=== PATIENT | male | born 1960 | race Caucasian/White ===

== ENCOUNTER 2023-11-02 09:37 | Inpatient (IN) | payer OTHER, SELFPAY ==
[2023-11-02] VITALS (8 sets, daily range): BP systolic 101–150; BP diastolic 53–80; PULSE 72–90; RESP 16–21; TEMP 36.5–36.8; O2SAT 92–98; BMI 27.4
--- NOTE | ~2023-11-02 | XR_ITS ---
EXAMINATION: XR CHEST CLINICAL INFORMATION: Cough and fever COMPARISON: None available. TECHNIQUE: Frontal view of the chest was obtained. FINDINGS: There is left basilar atelectasis present. No other significant abnormality is noted involving the heart, lungs, mediastinum, bony thorax or soft tissues. XR/XR chest 1V IMPRESSION: Left basilar atelectasis.
--- NOTE | 2023-11-02 07:00 | CA_ITS ---
Transthoracic Echocardiogram Patient (Last, First, Middle): Nilo Chu M Gender: Male Date of : 1960 Age: 63 Procedure Date: 11/02/2023 Procedure Type: Transthoracic Echocardiogram Location: ER Height: 180.34 cm Weight: 88.91 kg BSA: 2.09 m2 Heart Rate: bpm BP: 115 / 60 mmHg [employer] Consultant: Referring MD: Alycia Haskins DO Symptoms: elevated troponin Study Quality: Adequate ECG Rhythm: Sinus Conclusions: - The left ventricular systolic function is mildly decreased. The calculated ejection fraction is 52% by biplane method. - No obvious valvular pathology seen on this study. Findings Procedure Information Contrast agent, definity, is being given per protocol without apparent complications. Left Ventricle Normal left ventricular cavity size. There is normal left ventricular wall thickness. The left ventricular systolic function is mildly decreased. The calculated ejection fraction is 52% by biplane method. There is mild global hypokinesis. Diastolic function is normal for age. Possible basal inferior hypokinesis in some views. Right Ventricle Mildly increased right ventricular cavity size. There is normal right ventricular systolic function. Atria The left atrium is mildly dilated. The right atrium is normal in size. Aortic Valve There is a normal trileaflet aortic valve. There is no aortic valve stenosis. There is no aortic valve regurgitation. Mitral Valve The mitral valve appears normal. There is no mitral valve regurgitation. There is no mitral valve stenosis. Pulmonic Valve The pulmonic valve is likely normal. Tricuspid Valve There is trace tricuspid valve regurgitation. There is no evidence of pulmonary hypertension. Great Vessels The asc aorta is normal in size. Venous The inferior vena cava is normal in size and collapses greater than 50% with inspiration. Pericardium/Pleural There is a trivial pericardial effusion. Prior Study Comparison No prior study available for comparison. Recommendations, Care & Conclusions No obvious valvular pathology seen on this study. Measurements 2D Linear Measurements IVSd: 1.00 0.6-0.9/0.6-1.0 cm LVIDd: 5.40 3.9-5.3/4.2-5.9 cm LVIDd Index: 2.58 2.4-3.2/2.2-3.1 cm/m2 LVIDs: 3.83 2.0-3.6 cm LVPWd: 1.04 0.7-1.1 cm Ao Root: 3.30 2.1-3.5 cm LA Diam: 4.40 2.7-3.8/3.0-4.0 cm LAIDs Index: 2.11 1.5-2.3 cm/m2 LV Mass: 264.20 67-162/88-224 g LV Mass Index: 126.41 43-95/49-115 g/m2 LVOT Diam: 2.10 3.0+(-)1.3 cm 2D Systolic Function EF 4C: 53.90 >55% EF 2C: 52.00 >55% EF BiP: 52.40 >55% Mitral Valve MV Pk E: 0.99 MV PK A: 0.65 MV Decel Time: 118.00 E/A: 1.50 E'Lateral: 10.40 E'Medial: 7.07 E/E' Med: 14.00 E/E' Lat: 9.50 PHT: 34.00 MVA PHT: 6.47 Decel [place]: 8.43 Aortic Valve AoV Pk Bernabe: 1.29 AoV Mn Bernabe: 0.92 AoV VTI: 0.27 AoV Pk Grad: 7.00 Aov Mn Grad: 4.00 [place] Cont.VTI: 2.55 LVOT LVOT Pk Bernabe: 0.94 LVOT Mn Bernabe: 0.65 LVOT VTI: 0.20 LVOT Pk Grad: 4.00 LVOT Mn Grad: 2.00 LVOT Diam: 2.10 LVOT Area: 3.46 Diastolic Function MV Pk E: 0.99 MV Pk A: 0.65 E/A: 1.50 E'Medial: 7.07 E/E' Med: 14.00 E' Laterial: 10.40 E/E' Lat: 9.50 Right Ventricle TAPSE (mm): 25.00 TVS' Bernabe: 13.00 Tricuspid Valve TR Pk Bernabe: 2.12 TR Pk Grad: 18.00 RA Press: 3.00 RVSP: 21.00 Great Vessels Aorta Ao Root-2D: 3.30 2.0-3.7 cm Ao Asc: 3.50 2.1-3.4 cm Pulmonary Valve PV Pk Bernabe: 1.03 Peak PV Grad: 4.00 Updated in Other Vendor System with Status of Final Jonathan Emerson MD electronically signed on 11/02/2023 4:47:36 PM with status of Final
--- NOTE | 2023-11-02 09:53 | ECG_ITS ---
Test Reason : WEAKNESS Blood Pressure : / mmHG Vent. Rate : 077 BPM Atrial Rate : 077 BPM P-R Int : 146 ms QRS Dur : 088 ms QT Int : 404 ms P-R-T Axes : 035 031 028 degrees QTc Int : 457 ms Normal sinus rhythm Nonspecific ST abnormality Abnormal ECG No previous ECGs available Referred By: Alycia Haskins Electronically Signed By:IVETT GUTIERREZ
--- NOTE | 2023-11-02 10:06 | ED.GENADULT ---
HPI - General Adult General Chief complaint: General Medical Stated complaint: WEAKNESS S/P YARD WORK T-1 PER EMS Time Seen by Provider: 11/02/23 09:43 Source: patient, EMS and old records reviewed Mode of arrival: EMS Limitations: no limitations History of Present Illness ED Provider: BETO TONEY narrative: 63 yo male with PMH of depression and HLD here with c/o 1 week body aches, subjective fevers mild cough - no travel, sick contacts, no known tick bites. He is outside a lot. He has been taking Motrin for relief. This has never happened before. No dysuria. No neck pain. MD complaint: body aches Onset (ago): week(s) (1) Radiation: non-radiation Severity: moderate Quality: aching Pain Consistency: constant Relieving factors: none Exacerbating factors: movement Associated symptoms: fever/chills, loss of appetite and malaise Treatments prior to arrival: NSAID Related Data Home Medications ?Medication ?Instructions ?Recorded ?Confirmed ascorbic acid (vitamin C) 500 mg 500 mg PO DAILY 11/02/23 11/02/23 tablet atorvastatin 20 mg tablet 20 mg PO BEDTIME 11/02/23 11/02/23 multivitamin 1 tab PO DAILY 11/02/23 11/02/23 omega 8-zjs-tzq-fish oil 1,000 mg 1 cap PO DAILY 11/02/23 11/02/23 (120 mg-180 mg) capsule (Fish Oil) sertraline 100 mg tablet 100 mg PO DAILY 11/02/23 11/02/23 vitamin B complex 1 cap PO DAILY 11/02/23 11/02/23 Allergies Allergy/AdvReac Type Severity Reaction Status Date / Time Penicillins [PCN] Allergy Unknown Verified 11/02/23 09:50 Review of Systems Review of Systems: Constitutional : pos Fever, pos Chills, pos Fatigue ENT/Mouth : No sore throat, No Rhinorrhea Eyes: No Eye Pain, No Swelling, No Redness Cardiovascular : No Chest Pain, No SOB, No Dyspnea on Exertion Respiratory : No Cough, No Sputum Gastrointestinal : No Nausea, No Vomiting, No Diarrhea, No abdominal Pain Genitourinary : No Dysuria, No Urinary Frequency, No Hematuria, Musculoskeletal : No joint pain, pos Myalgias, No Joint Swelling Skin : No Skin Lesions, No rash Neuro : No Weakness, No Numbness, No Dizziness, no Headache Psych : No Anxiety/Panic, No Depression All other systems reviewed and are negative [facility] Past Medical History Attestation statement: The following information was validated with the patient. Source: old records reviewed Medical History Hyperlipidemia Depression Social History Social History Patient Tobacco Use Status: Never used Tobacco Advance Directives: No Advance Directives Information Provided: Yes Do you have a plan to hurt others: No Plan Physical Exam ED Vital Signs: Vital Signs - 24 hr 11/02/23 09:45 11/02/23 10:42 11/02/23 12:00 Temperature 98 F 97.8 F Pulse Rate 83 74 78 Respiratory Rate 18 18 18 Blood Pressure 131/76 120/69 115/60 Pulse Oximetry 98 97 96 Oxygen Delivery Method Room Air Room Air BMI result Body Mass Index 27.4 Appearance: Alert. Oriented X3. No acute distress. Eyes: Pupils equal, round and reactive to light. ENT: Pharynx normal. Neck: Normal inspection. Neck supple. CVS: Normal heart rate and rhythm. Pulses normal. Respiratory: No respiratory distress. Breath sounds normal. Abdomen: Soft and nontender. Skin: Skin warm and dry. Normal skin color. Normal skin turgor. Extremities: No lower extremity edema. No calf ttp Neuro: Oriented X 3. No motor deficit. No sensory deficit. Course Course Course Narrative: doxy started pending tick panel trop seems more like myocarditis vs ACS Medications Administered Discontinued Medications Generic Name Dose Route Start Last Admin Trade Name Freq PRN Reason Stop Dose Admin Sodium Chloride 1,000 mls @ 999 mls/hr 11/02/23 09:53 11/02/23 12:10 Ns IV 11/02/23 10:53 Infused .Q1H1M ONE Infusion Doxycycline Hyclate 100 mg/ 250 mls @ 166.67 mls/hr 11/02/23 11:57 11/02/23 14:40 Sodium Chloride IV 11/02/23 13:26 Infused ONCE ONE Infusion Medical Decision Making Medical Decision Making [facility] Narrative: 63 yo male with PMH of HLD, depression here with one week of generalized malaise, subj fevers/chills and body aches at this time no localized symptoms will obtain labs, UA, CXR, lyme and tick panel. Possible viral syndrome vs tick borne illness Differential Diagnosis Differential Diagnoses: The differential diagnosis associated with the presentation includes viral syndrome vs tick borne illness Admission/Observation Consideration of admission/observation: Escalation of care including admission/observation considered will admit for further workup Consult Healthcare Provider Management of the patient was discussed with: Hospitalist (will admit) and [facility]ology notified 1151am - admit ECHO and ESR, CRP Lab Data MDM Lab Attestation statement: I reviewed the patient's lab results. 11/02/23 10:36 11/02/23 11:19 Labs: Lab Results 11/02/23 11/02/23 11/02/23 Range/Units 10:36 10:37 11:19 WBC 11.8 H (4.8-10.8) X10*3/uL RBC 3.64 L (4.60-5.80) X10*6/uL Hgb 11.3 L (14.0-18.0) g/dl Hct 33.0 L (42.0-52.0) % MCV 90.7 (80.0-98.0) fL MCH 31.0 (27.0-33.0) pg MCHC 34.2 (31.0-36.0) g/dl RDW 12.9 (11.0-16.0) % Plt Count 290 (160-400) X10*3/uL MPV 11.7 (9.4-12.4) fL Immature Gran % (Auto) 1.1 H (0.0-0.4) % Neut % (Auto) 88.0 H (45-73) % Lymph % (Auto) 4.4 L (20-40) % [place] % (Auto) 6.2 (2-11) % Eos % (Auto) 0.1 (0-4) % Baso % (Auto) 0.2 (0-2) % Lymph # (Auto) 0.5 L (1.2-4.9) X10*3/uL [place] # (Auto) 0.7 (0.1-1.2) X10*3/uL Eos # (Auto) 0.0 (0.0-0.4) X10*3/uL Baso # (Auto) 0.0 (0.0-0.2) X10*3/uL Abs Immat Gran (auto) 0.13 H (0.00-0.03) X10*3/uL Absolute Neuts (auto) 10.4 H (2.0-8.3) x10*3/uL Absolute Nucleated RBC 0.000 (0.0-0.012) X10*3/uL Nucleated RBC % (auto) 0.0 (0.0-0.2) /100WBC ESR (0-15) MM/HR Sodium 138 (135-145) mmol/L Potassium 4.0 (3.3-5.1) mmol/L Chloride 105 (96-108) mmol/L Carbon Dioxide 25 (22-29) mmol/L Anion Gap 12 (12-20) BUN 23 H (9-16) mg/dL Creatinine 0.83 (0.5-1.4) mg/dL Estim Creat Clear Calc 98.2 Estimated GFR > 60 Random Glucose 113 (60-115) mg/dL Lactic Acid 1.6 (0.5-2.0) mmol/L Calcium 8.9 (8.4-10.2) mg/dL Magnesium 2.4 (1.6-2.6) mg/dL Total Bilirubin 1.3 H (0.0-1.0) mg/dL Direct Bilirubin 0.6 H (0.0-0.5) mg/dL AST 120 H (5-37) U/L ALT 130 H (0-40) U/L Alkaline Phosphatase 182 H (39-117) U/L Total Creatine Kinase 316 H (38-174) U/L Troponin I High Sens 6947.0 H* (<3.5-35.0) ng/L C-Reactive Protein 36.12 H (< or = 0.50) mg/dL B-Natriuretic Peptide (<100) pg/mL Total Protein 6.3 L (6.5-8.0) g/dL Albumin 3.1 L (3.5-5.0) g/dL Lipase 17 (8-78) U/L Hold Red Top Urine Color Urine Appearance Urine pH (5.0-9.0) Ur Specific [place] (1.005-1.025) Urine Protein (Neg-Trace) mg/dL Urine Glucose (UA) (Negative) mg/dL Urine Ketones (Negative) mg/dL Urine Blood (Negative) Urine Nitrite (Negative) Ur Leukocyte Esterase (Negative) Urine RBC (0-2) /HPF Urine WBC (0-5) /HPF Ur Squamous Epith Cells (0-2) /HPF Urine Bacteria (None Seen) Hyaline Casts (0-2) /LPF Granular Casts Influenza Type A (PCR) NEGATIVE (Negative) Influenza Type B (PCR) NEGATIVE (Negative) RSV RNA Qual (PCR) NEGATIVE (Negative) SARS-CoV-2 RNA (RT-PCR) NEGATIVE (Negative) 11/02/23 11/02/23 Range/Units 11:50 12:25 WBC (4.8-10.8) X10*3/uL RBC (4.60-5.80) X10*6/uL Hgb (14.0-18.0) g/dl Hct (42.0-52.0) % MCV (80.0-98.0) fL MCH (27.0-33.0) pg MCHC (31.0-36.0) g/dl RDW (11.0-16.0) % Plt Count (160-400) X10*3/uL MPV (9.4-12.4) fL Immature Gran % (Auto) (0.0-0.4) % Neut % (Auto) (45-73) % Lymph % (Auto) (20-40) % [place] % (Auto) (2-11) % Eos % (Auto) (0-4) % Baso % (Auto) (0-2) % Lymph # (Auto) (1.2-4.9) X10*3/uL [place] # (Auto) (0.1-1.2) X10*3/uL Eos # (Auto) (0.0-0.4) X10*3/uL Baso # (Auto) (0.0-0.2) X10*3/uL Abs Immat Gran (auto) (0.00-0.03) X10*3/uL Absolute Neuts (auto) (2.0-8.3) x10*3/uL Absolute Nucleated RBC (0.0-0.012) X10*3/uL Nucleated RBC % (auto) (0.0-0.2) /100WBC ESR 90 H (0-15) MM/HR Sodium (135-145) mmol/L Potassium (3.3-5.1) mmol/L Chloride (96-108) mmol/L Carbon Dioxide (22-29) mmol/L Anion Gap (12-20) BUN (9-16) mg/dL Creatinine (0.5-1.4) mg/dL Estim Creat Clear Calc Estimated GFR Random Glucose (60-115) mg/dL Lactic Acid (0.5-2.0) mmol/L Calcium (8.4-10.2) mg/dL Magnesium (1.6-2.6) mg/dL Total Bilirubin (0.0-1.0) mg/dL Direct Bilirubin (0.0-0.5) mg/dL AST (5-37) U/L ALT (0-40) U/L Alkaline Phosphatase (39-117) U/L Total Creatine Kinase (38-174) U/L Troponin I High Sens (<3.5-35.0) ng/L C-Reactive Protein (< or = 0.50) mg/dL B-Natriuretic Peptide 149 H (<100) pg/mL Total Protein (6.5-8.0) g/dL Albumin (3.5-5.0) g/dL Lipase (8-78) U/L Hold Red Top See Note Urine Color Dark Yellow Urine Appearance Cloudy Urine pH 5.5 (5.0-9.0) Ur Specific [place] >= 1.030 H (1.005-1.025) Urine Protein 100 (2+) H (Neg-Trace) mg/dL Urine Glucose (UA) Negative (Negative) mg/dL Urine Ketones Trace (Negative) mg/dL Urine Blood Negative (Negative) Urine Nitrite Negative (Negative) Ur Leukocyte Esterase Trace H (Negative) Urine RBC 0-2 (0-2) /HPF Urine WBC 0-5 (0-5) /HPF Ur Squamous Epith Cells 3-5 (0-2) /HPF Urine Bacteria 1+ (None Seen) Hyaline Casts 11-20 (0-2) /LPF Granular Casts Present Influenza Type A (PCR) (Negative) Influenza Type B (PCR) (Negative) RSV RNA Qual (PCR) (Negative) SARS-CoV-2 RNA (RT-PCR) (Negative) Independent Interpretation I performed an independent interpretation of an: EKG and Plain X-Ray (no CHF or pneumonia) Interpretation: Rate: 77 Rhythm: NSR [place]: normal Normal P waves. Normal [place]. Normal QRS complex. ST T wave : normal no RACHANA qTC: 457 prior studies: no acute ischemia The study has been interpreted contemporaneously by me. . Radiology Impression Discussion of test interpretation with radiology: I have reviewed the radiologist's reading. Independent Historian Clinical information obtained from an independent historian. History obtained from or confirmed by: EMS External Record Review External record reviewed: Outpatient record Discharge Plan Discharge Clinical Impression: Myalgia, Elevated troponin, Malaise Patient Disposition: Admitted As Inpatient
[2023-11-02] MEDS: 0.9 % Sodium Chloride 1,000 ML 999 ML IV (10:42)
[2023-11-02 10:46] LABS: MANUAL DIFF FLAG NO
[2023-11-02 10:49] LABS: Basophils Percent Auto 0.2 % (0-2); Eosinophils Percent Auto 0.1 % (0-4); Hemoglobin 11.3 g/dl (14.0-18.0); Imm Gran Abs Auto 0.13 X10*3/uL (0.00-0.03); Imm Gran Pct Auto 1.1 % (0.0-0.4); Lymphocytes Absolute Auto 0.5 X10*3/uL (1.2-4.9); Lymphocytes Percent Auto 4.4 % (20-40); Mean Corpuscular HGB Conc 34.2 g/dl (31.0-36.0); Mean Corpuscular Volume 90.7 fL (80.0-98.0); Mean Platelet Volume 11.7 fL (9.4-12.4); Monocytes Absolute Auto 0.7 X10*3/uL (0.1-1.2); Monocytes Percent Auto 6.2 % (2-11); Neutrophils Absolute Auto 10.4 x10*3/uL (2.0-8.3); Platelet Count 290 X10*3/uL (160-400); Red Blood Count 3.64 X10*6/uL (4.60-5.80); Red Cell Distribution Width 12.9 % (11.0-16.0); White Blood Count 11.8 X10*3/uL (4.8-10.8)
[2023-11-02 11:26] LABS: Influenza A PCR NEGATIVE (Negative); Influenza B PCR NEGATIVE (Negative); Resp Syncy Virus RNA Qual PCR NEGATIVE (Negative); SARS COV2 PCR INHOUSE NEGATIVE (Negative)
[2023-11-02 11:38] LABS: Lactic Acid 1.6 mmol/L (0.5-2.0)
[2023-11-02 11:45] LABS: Alanine Aminotransferase 130 U/L (0-40); Albumin Level 3.1 g/dL (3.5-5.0); Alkaline Phosphatase 182 U/L (39-117); Anion Gap 12 (12-20); Aspartate Amino Transferase 120 U/L (5-37); Bilirubin Direct 0.6 mg/dL (0.0-0.5); Bilirubin Total 1.3 mg/dL (0.0-1.0); Blood Urea Nitrogen 23 mg/dL (9-16); Calcium 8.9 mg/dL (8.4-10.2); Carbon Dioxide 25 mmol/L (22-29); Chloride 105 mmol/L (96-108); Creatinine Clr Calc Pharmacy 98.2; Estimated Glomerular Filt Rate > 60; Glucose Random 113 mg/dL (60-115); Lipase 17 U/L (8-78); Magnesium 2.4 mg/dL (1.6-2.6); Sodium 138 mmol/L (135-145); Total Protein 6.3 g/dL (6.5-8.0)
[2023-11-02] MEDS: Doxycycline Hyclate 100 MG in 0.9 % Sodium Chloride 250 ML 166.67 MG IV (12:08)
[2023-11-02 12:09] LABS: Appearance Urine Cloudy; Color Urine Dark Yellow; Glucose Urine UA Negative (Negative); Leukocyte Esterase Urine Trace (Negative); Nitrite Urine Negative (Negative); PH 5.5 (5.0-9.0); Specific Gravity - Urine >= 1.030 (1.005-1.025); UMIC TRIGGER UACC YES; Urine Blood Negative (Negative); Urine Ketones Trace mg/dL (Negative); Urine Protein 100 (2+) mg/dL (Neg-Trace)
--- NOTE | 2023-11-02 12:09 | PC.NURSE ---
PT AWARE OF PLAN FOR ADMISSION. DENIES CP, SOB. ENDORSES GENERAL MYALGIAS, NOW SOMEWHAT SUBSISDED 4/10, AND STOMACH CRAMPS. NSR ON MONITOR. IV ABX RUNNING.
[2023-11-02 12:21] LABS: Bacteria Urine 1+ (None Seen); Granular Casts Urine Present; RBC Urine 0-2 /HPF (0-2); WBC Urine 0-5 /HPF (0-5)
[2023-11-02 12:27] LABS: C Reactive Protein 36.12 mg/dL (< or = 0.50)
--- NOTE | 2023-11-02 12:47 | PM.IMHP ---
History of Present Illness Date of Service: 11/02/23 Attending physician on admission: Duncan De Jesus Chief Complaint: flu like symptoms 63-year-old male with history of hyperlipidemia, anxiety/depression presented to the ED earlier today for evaluation of flu-like symptoms ongoing for 1 week. He reports subjective fevers but has not taken his temperature, general malaise, myalgias, arthralgias, nausea, intermittent nonproductive cough ongoing for 1 week. Denies any sick contacts. He denies any sore throat, congestion, abdominal pain, vomiting, diarrhea, melena, hematochezia, lightheadedness, palpitations, shortness of breath, chest pain. He does report he has outside a lot and does have a dog but is unsure if he has had any tick bites recently. He reports occasional alcohol use, no use in the last 3 days. Reports drinking 1-2 drinks on Saturdays only. Denies any illicit drug use, marijuana use, cigarette smoking. Arrival, vital signs stable. There is a mild leukocytosis of 11.8. Normocytic anemia with H/H 11.3/33.0%. Platelets within normal limits. Renal function normal, electrolyte levels normal. Total bilirubin 1.3, direct bilirubin 0.6, AST 120, ALT 130, alkaline phosphatase 182. Total CK 316. CRP 36.12. ESR pending. Initial troponin 6947. Urinalysis shows trace leukocytes, 1+ bacteria, otherwise unremarkable. Negative for COVID-19, RSV, influenza. Full viral respiratory panel pending and tick serologies are also pending as well as Lyme IgG/IgM. Chest x-ray unremarkable except for left basilar atelectasis. EKG shows NSR, rate 77 without any acute ischemic changes. There are mild T-wave inversions in V1, otherwise no ST/T-wave abnormalities. In the ED, has received 1 L IV NS and 100 mg doxycycline. Review of Systems Review of Systems: Yes all other systems are reviewed and are negative [facility] Medical History Hyperlipidemia Depression Social History Patient Tobacco Use Status: Never used Tobacco Advance Directives: No Advance Directives Information Provided: Yes Do you have a plan to hurt others: No Plan Meds Allergies Allergy/AdvReac Type Severity Reaction Status Date / Time Penicillins [PCN] Allergy Unknown Verified 11/02/23 09:50 Active Medications: Current Medications Doxycycline Hyclate 100 mg/ (Sodium Chloride) 250 mls @ 166.67 mls/hr IV ONCE ONE Stop: 11/02/23 13:26 Last Admin: 11/02/23 12:08 Dose: 166.67 mls/hr Home Medications ?Medication ?Instructions ?Recorded ?Confirmed ?Last Taken ?Type ascorbic acid (vitamin C) 500 mg 500 mg PO DAILY 11/02/23 11/02/23 Unknown History tablet atorvastatin 20 mg tablet 20 mg PO BEDTIME 11/02/23 11/02/23 Unknown History multivitamin 1 tab PO DAILY 11/02/23 11/02/23 Unknown History omega 6-mvi-ysk-fish oil 1,000 mg 1 cap PO DAILY 11/02/23 11/02/23 Unknown History (120 mg-180 mg) capsule (Fish Oil) sertraline 100 mg tablet 100 mg PO DAILY 11/02/23 11/02/23 11/02/23 History vitamin B complex 1 cap PO DAILY 11/02/23 11/02/23 Unknown History Physical Exam Vital Signs and Narrative: Vital Signs: Last Vital Signs Temp 97.8 F 11/02/23 12:00 Pulse 78 11/02/23 12:00 Resp 18 11/02/23 12:00 BP 115/60 11/02/23 12:00 Pulse Ox 96 11/02/23 12:00 O2 Del Method Room Air 11/02/23 12:00 BMI result Body Mass Index 27.4 Constitutional - Awake and Alert, No apparent distress Eyes - PERRLA, EOMI Cardiovascular - S1S2, RRR, No edema Respiratory - Normal lung expansion, Normal respiratory effort, No respiratory distress, CTA bilaterally Gastrointestinal - mild diffuse abd pain, ND; +BS; No rebound or guarding Extremities - no calf tenderness bilaterally, no swelling Musculoskeletal - Normal inspection, normal ROM Skin - Warm/Dry Neurological - Alert & oriented x3, CN II-XII in tact, 5/5 strength BUE and BLE Psychological - Appropriate affect Results Labs 11/02/23 10:36 11/02/23 11:19 Labs: Laboratory Results - last 24 hr 11/02/23 11/02/23 11/02/23 10:36 10:37 11:19 MCV 90.7 MCH 31.0 MCHC 34.2 RDW 12.9 Plt Count 290 MPV 11.7 Immature Gran % (Auto) 1.1 H Neut % (Auto) 88.0 H Lymph % (Auto) 4.4 L [place] % (Auto) 6.2 Eos % (Auto) 0.1 Baso % (Auto) 0.2 Lymph # (Auto) 0.5 L [place] # (Auto) 0.7 Eos # (Auto) 0.0 Baso # (Auto) 0.0 Abs Immat Gran (auto) 0.13 H Absolute Neuts (auto) 10.4 H Absolute Nucleated RBC 0.000 Nucleated RBC % (auto) 0.0 Anion Gap 12 Estim Creat Clear Calc 98.2 Estimated GFR > 60 Random Glucose 113 Lactic Acid 1.6 Calcium 8.9 Magnesium 2.4 Total Bilirubin 1.3 H Direct Bilirubin 0.6 H AST 120 H ALT 130 H Alkaline Phosphatase 182 H Total Creatine Kinase 316 H Troponin I High Sens 6947.0 H* C-Reactive Protein 36.12 H Total Protein 6.3 L Albumin 3.1 L Lipase 17 Hold Red Top Urine Color Urine Appearance Urine pH Ur Specific [place] Urine Protein Urine Glucose (UA) Urine Ketones Urine Blood Urine Nitrite Ur Leukocyte Esterase Urine RBC Urine WBC Ur Squamous Epith Cells Urine Bacteria Hyaline Casts Granular Casts Influenza Type A (PCR) NEGATIVE Influenza Type B (PCR) NEGATIVE RSV RNA Qual (PCR) NEGATIVE SARS-CoV-2 RNA (RT-PCR) NEGATIVE 11/02/23 11/02/23 11:50 12:25 MCV MCH MCHC RDW Plt Count MPV Immature Gran % (Auto) Neut % (Auto) Lymph % (Auto) [place] % (Auto) Eos % (Auto) Baso % (Auto) Lymph # (Auto) [place] # (Auto) Eos # (Auto) Baso # (Auto) Abs Immat Gran (auto) Absolute Neuts (auto) Absolute Nucleated RBC Nucleated RBC % (auto) Anion Gap Estim Creat Clear Calc Estimated GFR Random Glucose Lactic Acid Calcium Magnesium Total Bilirubin Direct Bilirubin AST ALT Alkaline Phosphatase Total Creatine Kinase Troponin I High Sens C-Reactive Protein Total Protein Albumin Lipase Hold Red Top See Note Urine Color Dark Yellow Urine Appearance Cloudy Urine pH 5.5 Ur Specific [place] >= 1.030 H Urine Protein 100 (2+) H Urine Glucose (UA) Negative Urine Ketones Trace Urine Blood Negative Urine Nitrite Negative Ur Leukocyte Esterase Trace H Urine RBC 0-2 Urine WBC 0-5 Ur Squamous Epith Cells 3-5 Urine Bacteria 1+ Hyaline Casts 11-20 Granular Casts Present Influenza Type A (PCR) Influenza Type B (PCR) RSV RNA Qual (PCR) SARS-CoV-2 RNA (RT-PCR) Imaging Radiologist's Impressions: Impressions Chest X-Ray 11/02/23 10:12 IMPRESSION: Left basilar atelectasis. Assessment and Plan (1) Myocarditis: Status: Acute Plan 63-year-old male with history of hyperlipidemia, anxiety/depression admitted for further management of acute myocarditis #Acute myocarditis- etiology unclear -initial troponin 6900. Repeat troponin now and continue q.6h until peaked -EKG without acute ischemic changes -negative for COVID-19, flu, influenza. RPP pending -tick serologies as well as Lyme IgG/IgM with reflex to Western blot pending. Will empirically cover for Lyme carditis with doxycycline 100 mg twice daily until tick-borne illness ruled out -denies drug use -hold on AC at this time -ibuprofen q.4h. Hold on colchicine in the absence of chest pain -cardiac diet -cardiology consult -echo -monitor on tele #HLD -statin #Anxiety/depression -continue sertraline #Urinary incontinence -UA with 1+ leuks, 1+ bacteria. Hold on further abx for now -await cultures DVT prophylaxis- lovenox full code pt requires inpt stay at least 2 midnights for management of acute myocarditis with significantly elevated troponins requiring close cardiac monitoring, expert consulation, and serial troponin monitoring Quality Stroke Does the patient have a stroke diagnosis?: No VTE Prior VTE?: No VTE Risk Level:: Medical - moderate - high VTE Device Contraindication: Treatment Not Indicated VTE Drug Contraindication: N/A - Med Ordered
--- NOTE | 2023-11-02 13:03 | PHA.MEDREC ---
Pharmacy Consult ? Medication Reconciliation Pharmacy has completed the medication reconciliation.Med rec complete, compared with pharmacy history and spoke with patient.
[2023-11-02 13:08] LABS: B Type Natriuretic Peptide 149 pg/mL (<100)
[2023-11-02 13:28] LABS: Erythrocyte Sedimentation Rate 90 MM/HR (0-15)
[2023-11-02 15:15] LABS: Adenovirus PCR Not Detected (Not Detect.); Bordetella parapertussis PCR Not Detected (Not Detect.); Bordetella pertussis PCR Not Detected (Not Detect.); Chlamydia pneumoniae PCR Not Detected (Not Detect.); Coronavirus 229E PCR Not Detected (Not Detect.); Coronavirus HKU1 PCR Not Detected (Not Detect.); Coronavirus NL63 PCR Not Detected (Not Detect.); Coronavirus OC43 PCR Not Detected (Not Detect.); Human metapneumovirus PCR Not Detected (Not Detect.); Influenza A PCR Not Detected (Not Detect.); Influenza B PCR Not Detected (Not Detect.); Mycoplasma pneumoniae PCR Not Detected (Not Detect.); Parainfluenza 1 PCR Not Detected (Not Detect.); Parainfluenza 2 PCR Not Detected (Not Detect.); Parainfluenza 3 PCR Not Detected (Not Detect.); Parainfluenza 4 PCR Not Detected (Not Detect.); RSV PCR Not Detected (Not Detect.); Rhino/Enterovirus PCR Not Detected (Not Detect.)
[2023-11-02 15:40] LABS: SARS-CoV-2 PCR Not Detected (Not Detect.)
[2023-11-02] MEDS: Ibuprofen 400 MG TABLET PO ×2 (16:28→20:42)
[2023-11-02] MEDS: Enoxaparin Sodium 40 MG/0.4 ML SYRINGE SUBCUT (16:28)
[2023-11-02] MEDS: 0.9 % Sodium Chloride Flush 3 ML SYRINGE IVFLUSH (16:29)
--- NOTE | 2023-11-02 18:17 | PC.NURSE ---
PT FOUND TO BE DIAPHORETIC, THOUGH AFEBRILE 97.8 ORALLY. PT AMBULATED INDEPENDENTLY TO RESTROOM WITH NO ISSUE.
[2023-11-02] MEDS: Atorvastatin Calcium 20 MG TABLET PO (20:42)
--- NOTE | 2023-11-02 20:43 | PC.NURSE ---
this rn assumed care of pt, pt a&ox4, respirations even and unlabored. pt medicated per mar, pt tolerated well with water.
[2023-11-03] VITALS (8 sets, daily range): BP systolic 96–134; BP diastolic 54–80; PULSE 66–79; RESP 16–20; TEMP 35.9–36.9; O2SAT 95–97; BMI 26.6
[2023-11-03] MEDS: Doxycycline Hyclate 100 MG in 0.9 % Sodium Chloride 250 ML 166.67 MG IV ×3 (00:01→22:38)
--- NOTE | 2023-11-03 02:22 | PC.NURSE ---
critical troponin received- 0285.3, aware.
[2023-11-03 04:56] LABS: MANUAL DIFF FLAG NO
[2023-11-03 05:01] LABS: Basophils Percent Auto 0.3 % (0-2); Eosinophils Absolute Auto 0.1 X10*3/uL (0.0-0.4); Eosinophils Percent Auto 0.9 % (0-4); Hematocrit 36.3 % (42.0-52.0); Hemoglobin 12.5 g/dl (14.0-18.0); Imm Gran Abs Auto 0.13 X10*3/uL (0.00-0.03); Imm Gran Pct Auto 1.9 % (0.0-0.4); Lymphocytes Absolute Auto 0.5 X10*3/uL (1.2-4.9); Lymphocytes Percent Auto 6.6 % (20-40); Mean Corpuscular HGB Conc 34.4 g/dl (31.0-36.0); Mean Corpuscular Hemoglobin 30.6 pg (27.0-33.0); Monocytes Absolute Auto 0.2 X10*3/uL (0.1-1.2); Monocytes Percent Auto 2.4 % (2-11); Neutrophils Absolute Auto 6.2 x10*3/uL (2.0-8.3); Neutrophils Percent Auto 87.9 % (45-73); Platelet Count 334 X10*3/uL (160-400); Red Blood Count 4.08 X10*6/uL (4.60-5.80); Red Cell Distribution Width 12.9 % (11.0-16.0)
[2023-11-03 05:11] LABS: Anion Gap 17 (12-20); Blood Urea Nitrogen 24 mg/dL (9-16); Calcium 9.5 mg/dL (8.4-10.2); Carbon Dioxide 22 mmol/L (22-29); Chloride 105 mmol/L (96-108); Creatinine Clr Calc Pharmacy 103.2; Estimated Glomerular Filt Rate > 60; Glucose Random 102 mg/dL (60-115); Potassium 3.5 mmol/L (3.3-5.1); Sodium 140 mmol/L (135-145)
--- NOTE | 2023-11-03 06:23 | PC.NURSE ---
pt refused morning omeprazole, reports not taking this medication.
[2023-11-03] MEDS: Ibuprofen 400 MG TABLET PO ×3 (08:08→20:03)
[2023-11-03 08:23] LABS: Troponin-I High Sensitivity 1983.8 ng/L (<3.5-35.0)
--- NOTE | 2023-11-03 08:31 | MHC.CM.PN ---
PT REPORTS HE LIVES ALONE AND IS INDEPENDENT WITH CARE HE HAS NO SERVICES AND NO DME HE DECLINES TO COMPLETE A HCP PCP: ROMELIA ODEN DCP: HOME NO SERVICES VIA SELF-ARRANGED TRANSPORT
[2023-11-03] MEDS: Multivitamin TABLET 1 TAB PO (09:22)
[2023-11-03] MEDS: Ascorbic Acid 500 MG TABLET PO (09:22)
[2023-11-03] MEDS: Sertraline HCL 100 MG TABLET PO (09:22)
--- NOTE | 2023-11-03 10:46 | P.CONCA_ITS ---
History of Present Illness History of Present Illness Date of Service: 11/03/23 Chief complaint: myocarditis Narrative: This is a cardiology consultation regarding elevated troponins. Patient does not have any history of cardiovascular issues including coronary disease or myocardial infarction or cardiomyopathy. Essentially he has here for a week of infection symptoms including fevers, malaise, myalgias, cough extra. In this context, troponins were checked and they found to be high. Patient himself does not have any cardiac symptoms like angina or shortness of breath or in fact anything of that nature. Today, he states that overall he feels a bit better. Still no chest pain. Review of Systems 2 Review of Systems: Yes all other systems are reviewed and are negative Constitutional: Constitutional: Reports as per HPI and Reports no additional constitutional complaints Eyes: Eyes: Reports as per HPI and Denies no additional eye complaints ENT: Denies system reviewed and no additional complaints, except as documented and Reports as per HPI Cardiovascular: Cardiovascular: Reports as per HPI, Reports no additional cardiovascular complaints, Denies acrocyanosis, Denies cool extremities, Denies chest pain, Denies leg edema, Denies lightheadedness, Denies palpitations and Denies dyspnea Respiratory: Respiratory: Reports as per HPI, Denies no additional respiratory complaints and Denies dyspnea Gastrointestinal: Gastrointestinal: Reports as per HPI and Denies no additional gastrointestinal complaints Genitourinary: Genitourinary: Reports no additional male genitourinary complaints and Reports as per HPI Musculoskeletal: Musculoskeletal: Reports no additional musculoskeletal complaints and Reports as per HPI Integumentary/Breasts: Skin/Breast: Reports system reviewed and no additional complaints, except as docu Neurologic: Reports system reviewed and no additional complaints, except as documented and Reports as per HPI Psychiatric: Psychiatric: Reports no additional psychiatric complaints and Reports as per HPI Endocrine: Endocrine: Reports no additional endocrine complaints, Reports as per HPI and Denies palpitations Hematologic/Lymphatic: Hematologic/Lymphatic: Reports no additional hematologic/lymphatic complaints and Reports as per HPI Allergic/Immunologic: Allergic/Immunologic: Reports no additional allergic/immunologic complaints and Reports as per HPI [facility] Past Medical History Medical History Hyperlipidemia Depression Family History Family History (Updated 11/03/23 @ 10:47 by Jonathan Emerson MD) Father History of open heart surgery Social History Social History Household Members: None Housing: House Do you presently have visiting nurse or other home services: No Patient Tobacco Use Status: Never used Tobacco service: Yes Meds Allergies Allergy/AdvReac Type Severity Reaction Status Date / Time Penicillins [PCN] Allergy Unknown Verified 11/02/23 09:50 Active Medications: Current Medications Acetaminophen (Acetaminophen 325 Mg Tablet) 650 mg PO Q6H PRN PRN Reason: Pain, Mild (Pain Scale 1-3), fever or headache Ascorbic Acid (Ascorbic Acid 500 Mg Tablet) 500 mg PO DAILY [facility] Last Admin: 11/03/23 09:22 Dose: 500 mg Atorvastatin Calcium (Atorvastatin Calcium 20 Mg Tablet) 20 mg PO BEDTIME [facility] Last Admin: 11/02/23 20:42 Dose: 20 mg Calcium Carbonate (Calcium Carbonate 750 Mg Tab.Chew) 750 mg PO Q4H PRN PRN Reason: Heartburn Enoxaparin Sodium (Enoxaparin Sodium 40 Mg/0.4 Ml Syringe) 40 mg SUBCUT Q24H [facility] Last Admin: 11/02/23 16:28 Dose: 40 mg Doxycycline Hyclate 100 mg/ (Sodium Chloride) 250 mls @ 166.67 mls/hr IV Q12H [facility] Last Infusion: 11/03/23 01:50 Dose: Infused Ibuprofen (Ibuprofen 400 Mg Tablet) 400 mg PO Q6H [facility] Last Admin: 11/03/23 08:08 Dose: 400 mg Magnesium Hydroxide (Milk Of Magnesia 30 Ml Oral.Susp) 30 ml PO DAILY PRN PRN Reason: Constipation Melatonin (Melatonin 3 Mg Tablet) 6 mg PO BEDTIME PRN PRN Reason: Insomnia Multivitamins/Vitamin C (Multivitamin Tablet) 1 tab PO DAILY [facility] Last Admin: 11/03/23 09:22 Dose: 1 tab Omeprazole (Omeprazole 20 Mg Capsule.Dr) 20 mg PO DAILY@0630 [facility] Last Admin: 11/03/23 06:23 Dose: Not Given Ondansetron HCl (Ondansetron Hcl 4 Mg/2 Ml Vial) 4 mg IVPUSH Q8H PRN PRN Reason: Nausea and Vomiting Sertraline HCl (Sertraline Hcl 100 Mg Tablet) 100 mg PO DAILY [facility] Last Admin: 11/03/23 09:22 Dose: 100 mg Sodium Chloride (0.9 % Sodium Chloride Flush 3 Ml Syringe) 3 ml IVFLUSH QSHIFT [facility] Last Admin: 11/03/23 07:44 Dose: Not Given Home Medications ?Medication ?Instructions ?Recorded ?Confirmed ?Last Taken ?Type ascorbic acid (vitamin C) 500 mg 500 mg PO DAILY 11/02/23 11/02/23 Unknown History tablet atorvastatin 20 mg tablet 20 mg PO BEDTIME 11/02/23 11/02/23 Unknown History multivitamin 1 tab PO DAILY 11/02/23 11/02/23 Unknown History omega [id number] oil 1,000 mg 1 cap PO DAILY 11/02/23 11/02/23 Unknown History (120 mg-180 mg) capsule (Fish Oil) sertraline 100 mg tablet 100 mg PO DAILY 11/02/23 11/02/23 11/02/23 History vitamin B complex 1 cap PO DAILY 11/02/23 11/02/23 Unknown History Physical Exam 2 Vital Signs: Vital Signs: Last Vital Signs Temp 98.4 F 11/03/23 08:42 Pulse 79 11/03/23 08:42 Resp 20 11/03/23 08:42 BP 130/68 11/03/23 08:42 Pulse Ox 97 11/03/23 08:42 O2 Del Method Room Air 11/03/23 08:42 BMI result Body Mass Index 26.6 Const: General: comfortable and no acute distress O rientation/consciousness: patient oriented x3 HEENT: Other: Unremarkable Head: Yes normal to inspection Neck: Neck: Yes normal visual inspection Chest: Chest palpation & inspection: normal inspection of the chest Resp: Auscultation: clear to auscultation bilaterally Cardio: Palpation: normal PMI Heart sounds: S1 normal heart sound present, S2 normal heart sound present, no gallops, no murmurs and no rubs GI: Palpation (GI): Soft to palpation Back/Spine/Pelvis: Other: unremarkable Skin: General skin exam: no rashes or lesions noted Neuro: General: patient oriented x3 Extrem: General: Yes normal to inspection Psych: Mental Status: mental status grossly normal Objective Labs and Meds 11/03/23 04:05 11/03/23 04:05 Lab results: Laboratory Results - last 24 hr 11/02/23 11/02/23 11/02/23 10:36 10:37 11:19 WBC 11.8 H RBC 3.64 L Hgb 11.3 L Hct 33.0 L MCV 90.7 MCH 31.0 MCHC 34.2 RDW 12.9 Plt Count 290 MPV 11.7 Immature Gran % (Auto) 1.1 H Neut % (Auto) 88.0 H Lymph % (Auto) 4.4 L [place] % (Auto) 6.2 Eos % (Auto) 0.1 Baso % (Auto) 0.2 Lymph # (Auto) 0.5 L [place] # (Auto) 0.7 Eos # (Auto) 0.0 Baso # (Auto) 0.0 Abs Immat Gran (auto) 0.13 H Absolute Neuts (auto) 10.4 H Absolute Nucleated RBC 0.000 Nucleated RBC % (auto) 0.0 ESR Sodium 138 Potassium 4.0 Chloride 105 Carbon Dioxide 25 Anion Gap 12 BUN 23 H Creatinine 0.83 Estim Creat Clear Calc 98.2 Estimated GFR > 60 Random Glucose 113 Lactic Acid 1.6 Calcium 8.9 Magnesium 2.4 Total Bilirubin 1.3 H Direct Bilirubin 0.6 H AST 120 H ALT 130 H Alkaline Phosphatase 182 H Total Creatine Kinase 316 H Troponin I High Sens 6947.0 H* C-Reactive Protein 36.12 H B-Natriuretic Peptide Total Protein 6.3 L Albumin 3.1 L Lipase 17 Hold Red Top Urine Color Urine Appearance Urine pH Ur Specific [place] Urine Protein Urine Glucose (UA) Urine Ketones Urine Blood Urine Nitrite Ur Leukocyte Esterase Urine RBC Urine WBC Ur Squamous Epith Cells Urine Bacteria Hyaline Casts Granular Casts Respiratory Panel Raman Adenovirus (Rapid PCR) B.pert (TEM-PCR) B.parapertussis DNA PCR C. pneumoniae DNA (PCR) Coronavirus OC43 (PCR) Coronavirus HKU1 (PCR) Coronavirus 229E (PCR) Coronavirus NL63 (PCR) Human Metapneumovir PCR Influenza A (RT-PCR) Influenza Type A (PCR) NEGATIVE Influenza B (RT-PCR) Influenza Type B (PCR) NEGATIVE M. pneumoniae (PCR) Parainfluenza 1 (PCR) Parainfluenza 2 (PCR) Parainfluenza 3 (PCR) Parainfluenza 4 (PCR) RSV (PCR) RSV RNA Qual (PCR) NEGATIVE Entero/Rhino (PCR) SARS-CoV-2 RNA (RT-PCR) NEGATIVE 11/02/23 11/02/23 11/02/23 11:50 12:16 12:25 WBC RBC Hgb Hct MCV MCH MCHC RDW Plt Count MPV Immature Gran % (Auto) Neut % (Auto) Lymph % (Auto) [place] % (Auto) Eos % (Auto) Baso % (Auto) Lymph # (Auto) [place] # (Auto) Eos # (Auto) Baso # (Auto) Abs Immat Gran (auto) Absolute Neuts (auto) Absolute Nucleated RBC Nucleated RBC % (auto) ESR 90 H Sodium Potassium Chloride Carbon Dioxide Anion Gap BUN Creatinine Estim Creat Clear Calc Estimated GFR Random Glucose Lactic Acid Calcium Magnesium Total Bilirubin Direct Bilirubin AST ALT Alkaline Phosphatase Total Creatine Kinase Troponin I High Sens C-Reactive Protein B-Natriuretic Peptide 149 H Total Protein Albumin Lipase Hold Red Top See Note Urine Color Dark Yellow Urine Appearance Cloudy Urine pH 5.5 Ur Specific [place] >= 1.030 H Urine Protein 100 (2+) H Urine Glucose (UA) Negative Urine Ketones Trace Urine Blood Negative Urine Nitrite Negative Ur Leukocyte Esterase Trace H Urine RBC 0-2 Urine WBC 0-5 Ur Squamous Epith Cells 3-5 Urine Bacteria 1+ Hyaline Casts 11-20 Granular Casts Present Respiratory Panel Raman See Note Adenovirus (Rapid PCR) Not Detected B.pert (TEM-PCR) Not Detected B.parapertussis DNA PCR Not Detected C. pneumoniae DNA (PCR) Not Detected Coronavirus OC43 (PCR) Not Detected Coronavirus HKU1 (PCR) Not Detected Coronavirus 229E (PCR) Not Detected Coronavirus NL63 (PCR) Not Detected Human Metapneumovir PCR Not Detected Influenza A (RT-PCR) Not Detected Influenza Type A (PCR) Influenza B (RT-PCR) Not Detected Influenza Type B (PCR) M. pneumoniae (PCR) Not Detected Parainfluenza 1 (PCR) Not Detected Parainfluenza 2 (PCR) Not Detected Parainfluenza 3 (PCR) Not Detected Parainfluenza 4 (PCR) Not Detected RSV (PCR) Not Detected RSV RNA Qual (PCR) Entero/Rhino (PCR) Not Detected SARS-CoV-2 RNA (RT-PCR) Not Detected 11/02/23 11/02/23 11/03/23 13:39 19:30 01:20 WBC RBC Hgb Hct MCV MCH MCHC RDW Plt Count MPV Immature Gran % (Auto) Neut % (Auto) Lymph % (Auto) [place] % (Auto) Eos % (Auto) Baso % (Auto) Lymph # (Auto) [place] # (Auto) Eos # (Auto) Baso # (Auto) Abs Immat Gran (auto) Absolute Neuts (auto) Absolute Nucleated RBC Nucleated RBC % (auto) ESR Sodium Potassium Chloride Carbon Dioxide Anion Gap BUN Creatinine Estim Creat Clear Calc Estimated GFR Random Glucose Lactic Acid Calcium Magnesium Total Bilirubin Direct Bilirubin AST ALT Alkaline Phosphatase Total Creatine Kinase Troponin I High Sens 6866.9 H* 9330.8 H* 4718.3 H* C-Reactive Protein B-Natriuretic Peptide Total Protein Albumin Lipase Hold Red Top Urine Color Urine Appearance Urine pH Ur Specific [place] Urine Protein Urine Glucose (UA) Urine Ketones Urine Blood Urine Nitrite Ur Leukocyte Esterase Urine RBC Urine WBC Ur Squamous Epith Cells Urine Bacteria Hyaline Casts Granular Casts Respiratory Panel Raman Adenovirus (Rapid PCR) B.pert (TEM-PCR) B.parapertussis DNA PCR C. pneumoniae DNA (PCR) Coronavirus OC43 (PCR) Coronavirus HKU1 (PCR) Coronavirus 229E (PCR) Coronavirus NL63 (PCR) Human Metapneumovir PCR Influenza A (RT-PCR) Influenza Type A (PCR) Influenza B (RT-PCR) Influenza Type B (PCR) M. pneumoniae (PCR) Parainfluenza 1 (PCR) Parainfluenza 2 (PCR) Parainfluenza 3 (PCR) Parainfluenza 4 (PCR) RSV (PCR) RSV RNA Qual (PCR) Entero/Rhino (PCR) SARS-CoV-2 RNA (RT-PCR) 11/03/23 11/03/23 04:05 07:35 WBC 7.0 RBC 4.08 L Hgb 12.5 L Hct 36.3 L MCV 89.0 MCH 30.6 MCHC 34.4 RDW 12.9 Plt Count 334 MPV 10.0 Immature Gran % (Auto) 1.9 H Neut % (Auto) 87.9 H Lymph % (Auto) 6.6 L [place] % (Auto) 2.4 Eos % (Auto) 0.9 Baso % (Auto) 0.3 Lymph # (Auto) 0.5 L [place] # (Auto) 0.2 Eos # (Auto) 0.1 Baso # (Auto) 0.0 Abs Immat Gran (auto) 0.13 H Absolute Neuts (auto) 6.2 Absolute Nucleated RBC 0.000 Nucleated RBC % (auto) 0.0 ESR Sodium 140 Potassium 3.5 Chloride 105 Carbon Dioxide 22 Anion Gap 17 BUN 24 H Creatinine 0.79 Estim Creat Clear Calc 103.2 Estimated GFR > 60 Random Glucose 102 Lactic Acid Calcium 9.5 D Magnesium Total Bilirubin Direct Bilirubin AST ALT Alkaline Phosphatase Total Creatine Kinase Troponin I High Sens 1983.8 H* D C-Reactive Protein B-Natriuretic Peptide Total Protein Albumin Lipase Hold Red Top Urine Color Urine Appearance Urine pH Ur Specific [place] Urine Protein Urine Glucose (UA) Urine Ketones Urine Blood Urine Nitrite Ur Leukocyte Esterase Urine RBC Urine WBC Ur Squamous Epith Cells Urine Bacteria Hyaline Casts Granular Casts Respiratory Panel Raman Adenovirus (Rapid PCR) B.pert (TEM-PCR) B.parapertussis DNA PCR C. pneumoniae DNA (PCR) Coronavirus OC43 (PCR) Coronavirus HKU1 (PCR) Coronavirus 229E (PCR) Coronavirus NL63 (PCR) Human Metapneumovir PCR Influenza A (RT-PCR) Influenza Type A (PCR) Influenza B (RT-PCR) Influenza Type B (PCR) M. pneumoniae (PCR) Parainfluenza 1 (PCR) Parainfluenza 2 (PCR) Parainfluenza 3 (PCR) Parainfluenza 4 (PCR) RSV (PCR) RSV RNA Qual (PCR) Entero/Rhino (PCR) SARS-CoV-2 RNA (RT-PCR) ECG Interpretation: EKG with sinus rhythm at 77/Min; no significant ST-T changes and otherwise unremarkable. Normal VT and corrected QT. Assessment and Plan (1) Myocarditis: Status: Acute Plan Echocardiogram with LVEF of 52%. Possible basal inferior hypokinesis. No significant valvular issues. Troponin levels peaked at 9330 but now has come down to under 2000. LFTs are abnormal. Creatinine kinase is high. CRP is quite high. ESR is also quite high. Overall, suspect it is all in fact in nature and most likely has got myocarditis. He has got absolutely no chest pain and history is clearly not suggestive of any ACS at all. Await all serologies. Otherwise, we can plan on outpatient cardiac MRI. Okay for NSAIDs. Discussed with . Procedures Date of Service Date of Service: 11/03/23
--- NOTE | 2023-11-03 11:09 | P.PNIM_ITS ---
Subjective Subjective Date of Service: 11/03/23 Interval History: shaky but overall much better Physical Exam 2 Vital Signs: Vital Signs: Last Vital Signs Temp 98.4 F 11/03/23 08:42 Pulse 79 11/03/23 08:42 Resp 20 11/03/23 08:42 BP 130/68 11/03/23 08:42 Pulse Ox 97 11/03/23 08:42 O2 Del Method Room Air 11/03/23 08:42 BMI result Body Mass Index 26.6 Const: General: comfortable and no acute distress O rientation/consciousness: patient oriented x3 HEENT: Other: Unremarkable Head: Yes normal to inspection Neck: Neck: Yes normal visual inspection Chest: Chest palpation & inspection: normal inspection of the chest Resp: Auscultation: clear to auscultation bilaterally Cardio: Palpation: normal PMI Heart sounds: S1 normal heart sound present, S2 normal heart sound present, no gallops, no murmurs and no rubs GI: Palpation (GI): Soft to palpation Back/Spine/Pelvis: Other: unremarkable Skin: General skin exam: no rashes or lesions noted Neuro: General: patient oriented x3 Extrem: General: Yes normal to inspection Psych: Mental Status: mental status grossly normal Objective Data Active Medications Acetaminophen (Acetaminophen 325 Mg Tablet) 650 mg PO Q6H PRN PRN Reason: Pain, Mild (Pain Scale 1-3), fever or headache Ascorbic Acid (Ascorbic Acid 500 Mg Tablet) 500 mg PO DAILY [facility] Last Admin: 11/03/23 09:22 Dose: 500 mg Documented By: EVER Atorvastatin Calcium (Atorvastatin Calcium 20 Mg Tablet) 20 mg PO BEDTIME [facility] Last Admin: 11/02/23 20:42 Dose: 20 mg Documented By: ABBIE Calcium Carbonate (Calcium Carbonate 750 Mg Tab.Chew) 750 mg PO Q4H PRN PRN Reason: Heartburn Enoxaparin Sodium (Enoxaparin Sodium 40 Mg/0.4 Ml Syringe) 40 mg SUBCUT Q24H [facility] Last Admin: 11/02/23 16:28 Dose: 40 mg Documented By: CHANTELLE Doxycycline Hyclate 100 mg/ (Sodium Chloride) 250 mls @ 166.67 mls/hr IV Q12H [facility] Last Infusion: 11/03/23 01:50 Dose: Infused Documented By: ABBIE Ibuprofen (Ibuprofen 400 Mg Tablet) 400 mg PO Q6H [facility] Last Admin: 11/03/23 08:08 Dose: 400 mg Documented By: FAHAD Magnesium Hydroxide (Milk Of Magnesia 30 Ml Oral.Susp) 30 ml PO DAILY PRN PRN Reason: Constipation Melatonin (Melatonin 3 Mg Tablet) 6 mg PO BEDTIME PRN PRN Reason: Insomnia Multivitamins/Vitamin C (Multivitamin Tablet) 1 tab PO DAILY [facility] Last Admin: 11/03/23 09:22 Dose: 1 tab Documented By: EVER Omeprazole (Omeprazole 20 Mg Capsule.Dr) 20 mg PO DAILY@0630 [facility] Last Admin: 11/03/23 06:23 Dose: Not Given Documented By: ABBIE Non-Admin Reason: Patient Refused Ondansetron HCl (Ondansetron Hcl 4 Mg/2 Ml Vial) 4 mg IVPUSH Q8H PRN PRN Reason: Nausea and Vomiting Sertraline HCl (Sertraline Hcl 100 Mg Tablet) 100 mg PO DAILY [facility] Last Admin: 11/03/23 09:22 Dose: 100 mg Documented By: EVER Sodium Chloride (0.9 % Sodium Chloride Flush 3 Ml Syringe) 3 ml IVFLUSH QSHIFT [facility] Last Admin: 11/03/23 07:44 Dose: Not Given Documented By: FAHAD Non-Admin Reason: See Note Labs 11/03/23 04:05 11/03/23 04:05 Labs: Laboratory Results - last 24 hr 11/02/23 11/02/23 11/02/23 10:36 10:37 11:19 MCV MCH MCHC RDW Plt Count MPV Immature Gran % (Auto) Neut % (Auto) Lymph % (Auto) [place] % (Auto) Eos % (Auto) Baso % (Auto) Lymph # (Auto) [place] # (Auto) Eos # (Auto) Baso # (Auto) Abs Immat Gran (auto) Absolute Neuts (auto) Absolute Nucleated RBC Nucleated RBC % (auto) ESR Anion Gap 12 Estim Creat Clear Calc 98.2 Estimated GFR > 60 Random Glucose 113 Lactic Acid 1.6 Calcium 8.9 Magnesium 2.4 Total Bilirubin 1.3 H Direct Bilirubin 0.6 H AST 120 H ALT 130 H Alkaline Phosphatase 182 H Total Creatine Kinase 316 H Troponin I High Sens 6947.0 H* C-Reactive Protein 36.12 H B-Natriuretic Peptide Total Protein 6.3 L Albumin 3.1 L Lipase 17 Hold Red Top Urine Color Urine Appearance Urine pH Ur Specific [place] Urine Protein Urine Glucose (UA) Urine Ketones Urine Blood Urine Nitrite Ur Leukocyte Esterase Urine RBC Urine WBC Ur Squamous Epith Cells Urine Bacteria Hyaline Casts Granular Casts Respiratory Panel Raman Adenovirus (Rapid PCR) B.pert (TEM-PCR) B.parapertussis DNA PCR C. pneumoniae DNA (PCR) Coronavirus OC43 (PCR) Coronavirus HKU1 (PCR) Coronavirus 229E (PCR) Coronavirus NL63 (PCR) Human Metapneumovir PCR Influenza A (RT-PCR) Influenza Type A (PCR) NEGATIVE Influenza B (RT-PCR) Influenza Type B (PCR) NEGATIVE M. pneumoniae (PCR) Parainfluenza 1 (PCR) Parainfluenza 2 (PCR) Parainfluenza 3 (PCR) Parainfluenza 4 (PCR) RSV (PCR) RSV RNA Qual (PCR) NEGATIVE Entero/Rhino (PCR) SARS-CoV-2 RNA (RT-PCR) NEGATIVE 11/02/23 11/02/23 11/02/23 11:50 12:16 12:25 MCV MCH MCHC RDW Plt Count MPV Immature Gran % (Auto) Neut % (Auto) Lymph % (Auto) [place] % (Auto) Eos % (Auto) Baso % (Auto) Lymph # (Auto) [place] # (Auto) Eos # (Auto) Baso # (Auto) Abs Immat Gran (auto) Absolute Neuts (auto) Absolute Nucleated RBC Nucleated RBC % (auto) ESR 90 H Anion Gap Estim Creat Clear Calc Estimated GFR Random Glucose Lactic Acid Calcium Magnesium Total Bilirubin Direct Bilirubin AST ALT Alkaline Phosphatase Total Creatine Kinase Troponin I High Sens C-Reactive Protein B-Natriuretic Peptide 149 H Total Protein Albumin Lipase Hold Red Top See Note Urine Color Dark Yellow Urine Appearance Cloudy Urine pH 5.5 Ur Specific [place] >= 1.030 H Urine Protein 100 (2+) H Urine Glucose (UA) Negative Urine Ketones Trace Urine Blood Negative Urine Nitrite Negative Ur Leukocyte Esterase Trace H Urine RBC 0-2 Urine WBC 0-5 Ur Squamous Epith Cells 3-5 Urine Bacteria 1+ Hyaline Casts 11-20 Granular Casts Present Respiratory Panel Raman See Note Adenovirus (Rapid PCR) Not Detected B.pert (TEM-PCR) Not Detected B.parapertussis DNA PCR Not Detected C. pneumoniae DNA (PCR) Not Detected Coronavirus OC43 (PCR) Not Detected Coronavirus HKU1 (PCR) Not Detected Coronavirus 229E (PCR) Not Detected Coronavirus NL63 (PCR) Not Detected Human Metapneumovir PCR Not Detected Influenza A (RT-PCR) Not Detected Influenza Type A (PCR) Influenza B (RT-PCR) Not Detected Influenza Type B (PCR) M. pneumoniae (PCR) Not Detected Parainfluenza 1 (PCR) Not Detected Parainfluenza 2 (PCR) Not Detected Parainfluenza 3 (PCR) Not Detected Parainfluenza 4 (PCR) Not Detected RSV (PCR) Not Detected RSV RNA Qual (PCR) Entero/Rhino (PCR) Not Detected SARS-CoV-2 RNA (RT-PCR) Not Detected 11/02/23 11/02/23 11/03/23 13:39 19:30 01:20 MCV MCH MCHC RDW Plt Count MPV Immature Gran % (Auto) Neut % (Auto) Lymph % (Auto) [place] % (Auto) Eos % (Auto) Baso % (Auto) Lymph # (Auto) [place] # (Auto) Eos # (Auto) Baso # (Auto) Abs Immat Gran (auto) Absolute Neuts (auto) Absolute Nucleated RBC Nucleated RBC % (auto) ESR Anion Gap Estim Creat Clear Calc Estimated GFR Random Glucose Lactic Acid Calcium Magnesium Total Bilirubin Direct Bilirubin AST ALT Alkaline Phosphatase Total Creatine Kinase Troponin I High Sens 6866.9 H* 9330.8 H* 4718.3 H* C-Reactive Protein B-Natriuretic Peptide Total Protein Albumin Lipase Hold Red Top Urine Color Urine Appearance Urine pH Ur Specific [place] Urine Protein Urine Glucose (UA) Urine Ketones Urine Blood Urine Nitrite Ur Leukocyte Esterase Urine RBC Urine WBC Ur Squamous Epith Cells Urine Bacteria Hyaline Casts Granular Casts Respiratory Panel Raman Adenovirus (Rapid PCR) B.pert (TEM-PCR) B.parapertussis DNA PCR C. pneumoniae DNA (PCR) Coronavirus OC43 (PCR) Coronavirus HKU1 (PCR) Coronavirus 229E (PCR) Coronavirus NL63 (PCR) Human Metapneumovir PCR Influenza A (RT-PCR) Influenza Type A (PCR) Influenza B (RT-PCR) Influenza Type B (PCR) M. pneumoniae (PCR) Parainfluenza 1 (PCR) Parainfluenza 2 (PCR) Parainfluenza 3 (PCR) Parainfluenza 4 (PCR) RSV (PCR) RSV RNA Qual (PCR) Entero/Rhino (PCR) SARS-CoV-2 RNA (RT-PCR) 11/03/23 11/03/23 04:05 07:35 MCV 89.0 MCH 30.6 MCHC 34.4 RDW 12.9 Plt Count 334 MPV 10.0 Immature Gran % (Auto) 1.9 H Neut % (Auto) 87.9 H Lymph % (Auto) 6.6 L [place] % (Auto) 2.4 Eos % (Auto) 0.9 Baso % (Auto) 0.3 Lymph # (Auto) 0.5 L [place] # (Auto) 0.2 Eos # (Auto) 0.1 Baso # (Auto) 0.0 Abs Immat Gran (auto) 0.13 H Absolute Neuts (auto) 6.2 Absolute Nucleated RBC 0.000 Nucleated RBC % (auto) 0.0 ESR Anion Gap 17 Estim Creat Clear Calc 103.2 Estimated GFR > 60 Random Glucose 102 Lactic Acid Calcium 9.5 D Magnesium Total Bilirubin Direct Bilirubin AST ALT Alkaline Phosphatase Total Creatine Kinase Troponin I High Sens 1983.8 H* D C-Reactive Protein B-Natriuretic Peptide Total Protein Albumin Lipase Hold Red Top Urine Color Urine Appearance Urine pH Ur Specific [place] Urine Protein Urine Glucose (UA) Urine Ketones Urine Blood Urine Nitrite Ur Leukocyte Esterase Urine RBC Urine WBC Ur Squamous Epith Cells Urine Bacteria Hyaline Casts Granular Casts Respiratory Panel Raman Adenovirus (Rapid PCR) B.pert (TEM-PCR) B.parapertussis DNA PCR C. pneumoniae DNA (PCR) Coronavirus OC43 (PCR) Coronavirus HKU1 (PCR) Coronavirus 229E (PCR) Coronavirus NL63 (PCR) Human Metapneumovir PCR Influenza A (RT-PCR) Influenza Type A (PCR) Influenza B (RT-PCR) Influenza Type B (PCR) M. pneumoniae (PCR) Parainfluenza 1 (PCR) Parainfluenza 2 (PCR) Parainfluenza 3 (PCR) Parainfluenza 4 (PCR) RSV (PCR) RSV RNA Qual (PCR) Entero/Rhino (PCR) SARS-CoV-2 RNA (RT-PCR) Microbiology Microbiology Results: Microbiology 11/02/23 11:50 Urine Culture - Final Urine clean catch No growth. Assessment and Plan (1) Myocarditis: Status: Acute Plan 63M PMH mood disorder, hyperlipidemia, presented with fevers and chills found to have elevated troponins and liver enzymes Acute myocarditis Due to fall syndrome versus tick-borne illness No chest pain, EKG unremarkable, mild wall motion abnormalities on echo Continue empiric doxycycline, follow-up Lyme Monitor labs Hyperlipidemia Continue statin Mood disorder Sertraline DVT prophylaxis with Lovenox Full Code reason for continued hospitalization: Still with shakes, awaiting defervescence and labs Quality Stroke Does the patient have a stroke diagnosis?: No VTE Prior VTE?: No VTE Risk Level:: Medical - moderate - high VTE Device Contraindication: Treatment Not Indicated VTE Drug Contraindication: N/A - Med Ordered
[2023-11-03] MEDS: Enoxaparin Sodium 40 MG/0.4 ML SYRINGE SUBCUT (15:11)
[2023-11-03] MEDS: Atorvastatin Calcium 20 MG TABLET PO (20:03)
[2023-11-03 21:48] LABS: A. Phagocytphilium DNA,RT-PCR NOT DETECTED (NOT DETECTED); Babesia Microti DNA, RT-PCR NOT DETECTED (NOT DETECTED); Borrelia Miyamotoi,DNA RT-PCR NOT DETECTED (NOT DETECTED); E.Chaffeensis DNA RT-PCR NOT DETECTED (NOT DETECTED); Lyme(Borrelia ssp)DNA RT-PCR NOT DETECTED (NOT DETECTED)
[2023-11-03] MEDS: 0.9 % Sodium Chloride Flush 3 ML SYRINGE IVFLUSH (22:38)
[2023-11-04] VITALS: BP 135/65; PULSE 77; RESP 17; TEMP 36.8; O2SAT 96
[2023-11-04 03:56] VITALS: BP 122/52; PULSE 73; RESP 16; TEMP 36.5; O2SAT 95
[2023-11-04] MEDS: Omeprazole 20 MG CAPSULE.DR PO (05:34)
[2023-11-04 07:37] LABS: Hematocrit 36.1 % (42.0-52.0); Hemoglobin 12.3 g/dl (14.0-18.0); Mean Corpuscular HGB Conc 34.1 g/dl (31.0-36.0); Mean Corpuscular Hemoglobin 30.1 pg (27.0-33.0); Mean Corpuscular Volume 88.3 fL (80.0-98.0); Mean Platelet Volume 9.8 fL (9.4-12.4); Platelet Count 335 X10*3/uL (160-400); Red Blood Count 4.09 X10*6/uL (4.60-5.80); White Blood Count 10.9 X10*3/uL (4.8-10.8)
[2023-11-04] MEDS: 0.9 % Sodium Chloride Flush 3 ML SYRINGE IVFLUSH (07:40)
[2023-11-04] MEDS: Ibuprofen 400 MG TABLET PO (07:44)
[2023-11-04] MEDS: Sertraline HCL 100 MG TABLET PO (07:44)
[2023-11-04] MEDS: Ascorbic Acid 500 MG TABLET PO (07:44)
[2023-11-04] MEDS: Multivitamin TABLET 1 TAB PO (07:44)
[2023-11-04 07:56] LABS: Alanine Aminotransferase 109 U/L (0-40); Albumin Level 3.2 g/dL (3.5-5.0); Alkaline Phosphatase 227 U/L (39-117); Anion Gap 17 (12-20); Aspartate Amino Transferase 79 U/L (5-37); Bilirubin Direct 0.6 mg/dL (0.0-0.5); Blood Urea Nitrogen 22 mg/dL (9-16); C Reactive Protein 36.11 mg/dL (< or = 0.50); Calcium 9.4 mg/dL (8.4-10.2); Carbon Dioxide 20 mmol/L (22-29); Chloride 107 mmol/L (96-108); Creatinine Clr Calc Pharmacy 123.5; Estimated Glomerular Filt Rate > 60; Glucose Fasting 115 mg/dL (60-99); Magnesium 2.5 mg/dL (1.6-2.6); Potassium 3.6 mmol/L (3.3-5.1); Sodium 140 mmol/L (135-145); Total Protein 6.8 g/dL (6.5-8.0)
[2023-11-04 08:00] VITALS: BP 142/71; PULSE 78; RESP 20; TEMP 37; O2SAT 98
--- NOTE | 2023-11-04 10:05 | P.DS_ITS ---
DS: Providers Provider Date of Service: 11/04/23 Date of admission: 11/02/23 13:04 Primary care physician: Zeyad Sears MD Consults: 11/02/23 18:03 Consult to Cardiology Routine Consulting Provider: [facility] Reason for consultation: myocarditis DS: Diagnosis Discharge Diagnosis (1) Myocarditis: Status: Acute DS: Summary Hospital Course Hospital Course: from initial hpi: 63-year-old male with history of hyperlipidemia, anxiety/depression presented to the ED earlier today for evaluation of flu-like symptoms ongoing for 1 week. He reports subjective fevers but has not taken his temperature, general malaise, myalgias, arthralgias, nausea, intermittent nonproductive cough ongoing for 1 week. Denies any sick contacts. He denies any sore throat, congestion, ab dominal pain, vomiting, diarrhea, melena, hematochezia, lightheadedness, palpitations, shortness of breath, chest pain. He does report he has outside a lot and does have a dog but is unsure if he has had any tick bites recently. He reports occasional alcohol use, no use in the last 3 days. Reports drinking 1-2 drinks on Saturdays only. Denies any illicit drug use, marijuana use, cigarette smoking. Arrival, vital signs stable. There is a mild leukocytosis of 11.8. Normocytic anemia with H/H 11.3/33.0%. Platelets within normal limits. Renal function normal, electrolyte levels normal. Total bilirubin 1.3, direct bilirubin 0.6, AST 120, ALT 130, alkaline phosphatase 182. Total CK 316. CRP 36.12. ESR pending. Initial troponin 6947. Urinalysis shows trace leukocytes, 1+ bacteria, otherwise unremarkable. Negative for COVID-19, RSV, influenza. Full viral respiratory panel pending and tick serologies are also pending as well as Lyme IgG/IgM. Chest x-ray unremarkable except for left basilar atelectasis. EKG shows NSR, rate 77 without any acute ischemic changes. There are mild T-wave inversions in V1, otherwise no ST/T-wave abnormalities. In the ED, has received 1 L IV NS and 100 mg doxycycline. hospital course: Patient was admitted for acute myocarditis. His troponins peaked at about 6000. EKG was unremarkable. Patient never had chest pain. Echo showed mild wall motion abnormalities but ejection fraction was normal. Respiratory viral panel was negative. Lyme screen is still pending and patient was treated with empiric doxycycline he will be sent doxycycline as outpatient, but can discontinue if Lyme screen comes back negative. There was some suspicion of alcohol withdrawal during hospitalization however, patient is not interested in any treatment. For hyperlipidemia was continue statin. For mood disorders continued on sertraline. Time Attestation Discharge Coordination Time (in mins): 34 Quality: Safe Use of Opioids Does Pt have an Active Cancer Diagnosis on the Problem List?: No Quality: Stroke Does the patient have a stroke diagnosis?: No Physical Exam Vital Signs: Vital Signs: Last Vital Signs Temp 98.6 F 11/04/23 08:00 Pulse 78 11/04/23 08:00 Resp 20 11/04/23 08:00 BP 142/71 H 11/04/23 08:00 Pulse Ox 98 11/04/23 08:00 O2 Del Method Room Air 11/04/23 08:00 BMI result Body Mass Index 26.6 Const: General: comfortable and no acute distress Orientation/consciousness: patient oriented x3 HEENT: Other: Unremarkable Head: Yes normal to inspection Neck: Neck: Yes normal visual inspection Chest: Chest palpation & inspection: normal inspection of the chest Resp: Auscultation: clear to auscultation bilaterally Cardio: Palpation: normal PMI Heart sounds: S1 normal heart sound present, S2 normal heart sound present, no gallops, no murmurs and no rubs GI: Palpation (GI): Soft to palpation Back/Spine/Pelvis: Other: unremarkable Skin: General skin exam: no rashes or lesions noted Neuro: General: patient oriented x3 Extrem: General: Yes normal to inspection Psych: Mental Status: mental status grossly normal DS: Data Data Completed and Pending Labs on day of discharge: Laboratory Results - last 24 hr 11/02/23 11/04/23 10:36 07:23 WBC 10.9 H RBC 4.09 L Hgb 12.3 L Hct 36.1 L MCV 88.3 MCH 30.1 MCHC 34.1 RDW 13.0 Plt Count 335 MPV 9.8 Absolute Nucleated RBC 0.000 Nucleated RBC % (auto) 0.0 Sodium 140 Potassium 3.6 Chloride 107 Carbon Dioxide 20 L Anion Gap 17 BUN 22 H Creatinine 0.66 Estim Creat Clear Calc 123.5 Estimated GFR > 60 Fasting Glucose 115 H Calcium 9.4 Magnesium 2.5 Total Bilirubin 1.0 Direct Bilirubin 0.6 H AST 79 H ALT 109 H Alkaline Phosphatase 227 H C-Reactive Protein 36.11 H Total Protein 6.8 Albumin 3.2 L A.phagocytophil DNA PCR NOT DETECTED Babesia microti DNA PCR NOT DETECTED Borrelia sp DNA (PCR) NOT DETECTED Borrelia miyamotoi (PCR) NOT DETECTED E.chaffeensis DNA (PCR) NOT DETECTED Tick-borne Disease PCR SEE NOTE Preliminary micro results at discharge 11/02/23 10:36 Blood Culture - Preliminary Blood - Venous No growth after 24 hours. 11/02/23 10:36 Blood Culture - Preliminary Blood - Venous No growth after 24 hours. Discharge Plan Discharge Anticipated Discharge Date/Time: 11/04/23 10:03 Patient Disposition: Home, Self-Care Discharge Diagnosis: myocarditis Referrals: Zeyad Sears MD [Primary Care Provider] - 1 Week Discharge Medications: New doxycycline hyclate 100 mg capsule 100 mg PO BID Qty: 20 0RF Rx Instructions: can stop early if lyme screen is negative Continued atorvastatin 20 mg Tablet 20 mg PO BEDTIME sertraline 100 mg Tablet 100 mg PO DAILY multivitamin Tablet 1 tab PO DAILY ascorbic acid (vitamin C) 500 mg Tablet 500 mg PO DAILY omega 9-cka-rtj-fish oil [Fish Oil] 1,000 mg (120 mg-180 mg) Capsule 1 cap PO DAILY vitamin B complex Capsule 1 cap PO DAILY Discharge Orders: Discharge Order (Routine); Ordered 11/04/23 Ordered By: Ethan Handley Diet: no etoh Activity on Discharge: As tolerated Stand Alone Forms: Patient Portal Discharge page Print Language: Indonesian Care Plan Goals: recovery Health Concerns: myocarditis Plan of Treatment: doxy for now, if lyme screen negative can stop it. Assessment: see above
--- NOTE | 2023-11-04 10:34 | PM.PNCARD ---
Subjective Subjective Date of Service: 11/04/23 Interval history: Patient states that he is feeling fine. No cardiac symptoms. Improving. Review of Systems Review of Systems Yes all other systems are reviewed and are negative Constitutional: Reports as per HPI and Reports no additional constitutional complaints Eyes: Reports as per HPI and Denies no additional eye complaints Denies system reviewed and no additional complaints, except as documented and Reports as per HPI Cardiovascular: Reports as per HPI, Reports no additional cardiovascular complaints, Denies acrocyanosis, Denies cool extremities, Denies chest pain, Denies leg edema, Denies lightheadedness, Denies palpitations and Denies dyspnea Respiratory: Reports as per HPI, Denies no additional respiratory complaints and Denies dyspnea Gastrointestinal: Reports as per HPI and Denies no additional gastrointestinal complaints Genitourinary: Reports no additional male genitourinary complaints and Reports as per HPI Musculoskeletal: Reports no additional musculoskeletal complaints and Reports as per HPI Skin/Breast: Reports system reviewed and no additional complaints, except as docu Reports system reviewed and no additional complaints, except as documented and Reports as per HPI Psychiatric: Reports no additional psychiatric complaints and Reports as per HPI Endocrine: Reports no additional endocrine complaints, Reports as per HPI and Denies palpitations Hematologic/Lymphatic: Reports no additional hematologic/lymphatic complaints and Reports as per HPI Allergic/Immunologic: Reports no additional allergic/immunologic complaints and Reports as per HPI Physical Exam Vital Signs: Last Vital Signs Temp 98.6 F 11/04/23 08:00 Pulse 78 11/04/23 08:00 Resp 20 11/04/23 08:00 BP 142/71 H 11/04/23 08:00 Pulse Ox 98 11/04/23 08:00 O2 Del Method Room Air 11/04/23 08:00 BMI result Body Mass Index 26.6 Const General: comfortable and no acute distress Orientation/consciousness: patient oriented x3 HEENT Other: Unremarkable Head: Yes normal to inspection Neck Neck: Yes normal visual inspection Chest Chest palpation & inspection: normal inspection of the chest Resp Auscultation: clear to auscultation bilaterally Cardio Palpation: normal PMI Heart sounds: S1 normal heart sound present, S2 normal heart sound present, no gallops, no murmurs and no rubs GI Palpation (GI): Soft to palpation Back/Spine/Pelvis Other: unremarkable Skin General skin exam: no rashes or lesions noted Neuro General: patient oriented x3 Extrem General: Yes normal to inspection Psych Mental Status: mental status grossly normal Objective Labs and Meds 11/04/23 07:23 11/04/23 07:23 Lab results: Laboratory Results - last 24 hr 11/02/23 11/04/23 10:36 07:23 WBC 10.9 H RBC 4.09 L Hgb 12.3 L Hct 36.1 L MCV 88.3 MCH 30.1 MCHC 34.1 RDW 13.0 Plt Count 335 MPV 9.8 Absolute Nucleated RBC 0.000 Nucleated RBC % (auto) 0.0 Sodium 140 Potassium 3.6 Chloride 107 Carbon Dioxide 20 L Anion Gap 17 BUN 22 H Creatinine 0.66 Estim Creat Clear Calc 123.5 Estimated GFR > 60 Fasting Glucose 115 H Calcium 9.4 Magnesium 2.5 Total Bilirubin 1.0 Direct Bilirubin 0.6 H AST 79 H ALT 109 H Alkaline Phosphatase 227 H C-Reactive Protein 36.11 H Total Protein 6.8 Albumin 3.2 L A.phagocytophil DNA PCR NOT DETECTED Babesia microti DNA PCR NOT DETECTED Borrelia sp DNA (PCR) NOT DETECTED Borrelia miyamotoi (PCR) NOT DETECTED E.chaffeensis DNA (PCR) NOT DETECTED Tick-borne Disease PCR SEE NOTE Progress Note: A&P Assessment and plan (1) Myocarditis: Status: Acute Plan Echocardiogram with LVEF of 52%. Possible basal inferior hypokinesis. No significant valvular issues. Troponin levels peaked at 9330 but now has come down to under 2000. LFTs are abnormal. Creatinine kinase is high. CRP is quite high. ESR is also quite high. Clinically, he does not have chest pain still. Suspected to be more consistent with myocarditis. Based on serologies, will need to treat that appropriately. Otherwise, conservative care and most likely he will recover fully. Follow-up in clinic and consider cardiac MRI. Discussed with . Time Spent With Patient Time: Total time managing care of this patient today ____ minutes. Progress Note: Quality Stroke Does the patient have a stroke diagnosis?: No Procedures Date of Service Date of Service: 11/04/23
[2023-11-04] MEDS: Doxycycline Monohydrate 100 MG CAPSULE PO (10:44)
--- NOTE | 2023-11-04 11:11 | MHC.CM.PN ---
pt medically cleared for dc home no services, pt to arrange transport
[2023-11-05 21:18] LABS: Lyme Abs Screen <0.90 index
== END 2023-11-04 12:15 | disposition home or self-care (01) | DRG 207 ==
LOC: HO.ED 13:04 → HO.EDOVER 13:17 → HO.IMC 11-03 07:42
PROVIDERS: Admitting Provider Physician Assistant; Emergency Provider Emergency Medicine; PCP Internal Medicine; Visit Provider Internal Medicine
DX: I40.9 Acute myocarditis, unspecified (principal); E78.5 Hyperlipidemia, unspecified; F41.9 Anxiety disorder, unspecified; F32.A Depression, unspecified; R32 Unspecified urinary incontinence; Z20.822 Contact with and (suspected) exposure to COVID-19; Z79.899 Other long term (current) drug therapy
CPT/HCPCS: 0241U; 36415; 71045; 80048; 80076; 81001; 82550; 83605; 83690; 83735; 83880; 84484; 85025; 85027; 85652; 86140; 86617; 86618; 87040; 87086; 87468; 87469; 87478; 87484; 87633; 87798; 93005; 93306; 99222; 99285; J1650; Q9957

== ENCOUNTER → 2023-11-02 09:53 | Outpatient (BNV) | payer OTHER, SELFPAY | PROVIDERS: Emergency Provider Emergency Medicine; PCP Internal Medicine; Visit Provider Internal Medicine | DX: R94.31 Abnormal electrocardiogram [ECG] [EKG] (principal); I51.89 Other ill-defined heart diseases; R93.1 Abnormal findings on diagnostic imaging of heart and coronary circulation | CPT/HCPCS: 93010; 93306 ==

== ENCOUNTER → 2023-11-02 13:04 | Outpatient (BNV) | payer OTHER, SELFPAY | PROVIDERS: Admitting Provider Physician Assistant; Emergency Provider Emergency Medicine; PCP Internal Medicine; Visit Provider Internal Medicine | DX: I51.4 Myocarditis, unspecified (principal) | CPT/HCPCS: 99223; 99233 ==

== ENCOUNTER → 2023-11-02 13:04 | Outpatient (BNV) | payer OTHER, SELFPAY | PROVIDERS: Admitting Provider Physician Assistant; Emergency Provider Emergency Medicine; PCP Internal Medicine; Visit Provider Physician Assistant | DX: I51.4 Myocarditis, unspecified (principal) | CPT/HCPCS: 99223; 99233; 99239 ==

== ENCOUNTER 2023-12-01 13:25 | Outpatient (AMB) | payer OTHER, SELFPAY ==
--- NOTE | 2023-12-01 13:29 | A.OFFPC_ITS ---
Vital Signs 12/01/23 13:31 Height 5 ft 11 in Weight 173 lb BMI 24.1 BP 100/66 Blood Pressure Location Lt brachial Position Sitting Pulse 111 H Pulse Source Pulse Oximeter Pulse Oximetry (%) 96 Oxygen Delivery Method Room Air Intake Visit Reasons: New patient Intake Note: Patient is a new patient here to establish care for Cholesterol, Depression, Anxiety. Transferring care from DR Julio ([facility]). Medical records have not been requested and have not received. Dietetic Intern Required: No Corporate Job Titles: Not Required per policy Accompanied by: Self / Same As Patient Allergies Penicillins [PCN] Allergy (Verified 12/01/23 14:12) Unknown Medication List - Last Reconciled 12/01/23 by Zeyad Sears MD ascorbic acid (vitamin C) 500 mg PO DAILY atorvastatin 20 mg PO BEDTIME multivitamin 1 tab PO DAILY omega 1-bwr-nxl-fish oil 1,000 mg (120 mg-180 mg) (Fish Oil) 1 cap PO DAILY sertraline 100 mg PO DAILY vitamin B complex 1 cap PO DAILY Tobacco use date assessed: 12/01/23 Dental Screening Dental Screen Date: 12/01/23 Did you have a dental visit in the last 12 months?: Yes Did you have a dental problem in the last 6 months where you did not have access to dental care?: No Was dental information given to patient?: Patient has dentist HPI New patient HPI Details 63-year-old male presents to the office to establish his care. Patient was recently in the hospital with a diagnosis of myocarditis. Had markedly elevated troponin. Patient was discharged home on doxycycline. Patient has been abstaining from alcohol since discharge. He had a lot of side effects taking the doxycycline but has completed the course. Has returned to his normal baseline activities. [facility] Medical History (Updated 12/01/23 @ 14:14 by Zeyad Sears MD) Myocarditis Hyperlipidemia Depression Surgical History History of tonsillectomy History of hand surgery History of mandibular surgery Family History Father History of open heart surgery Other Mental health disorder Social History Household Members: None Housing: House Do you presently have visiting nurse or other home services: No Alcohol intake: current Alcohol intake frequency: a few times a month Patient Tobacco Use Status: Former Tobacco user e-Cigarette/Vaping Use: Never Used Second Hand Smoke Exposure: No service: Yes Current occupational status: retired Cognitive needs: No Hearing needs: No Vision needs: Yes (Glasses) Questionnaire PHQ-9 Over the last 2 weeks, how often have you been bothered by any of the following problems? 1. Little interest or pleasure in doing things: several days 2. Feeling down, depressed, or hopeless: several days 3. Trouble falling or staying asleep, or sleeping too much: several days 4. Feeling tired or having little energy: more than half the days 5. Poor appetite or overeating: several days 6. Feeling bad about yourself - or that you are a failure or have let yourself or your family down: not at all 7. Trouble concentrating on things, such as reading the newspaper or watching television: several days 8. Moving or speaking so slowly that other people could have noticed. Or the opposite - being so fidgety or restless that you have been moving around a lot more than usual: not at all 9. Thoughts that you would be better off or of hurting yourself in some way: not at all Total score: 7 Depression Screening Interpretation: Positive (On SSRI.) Depression Screening Follow-up: In treatment Depression Screening Done: Yes Source: Developed by Drs. Oleg Stewart, Ana Garza, Eliu Anna and colleagues, with an educational faisal from [employer]. Thrive Questionnaire Date Thrive assessed: 11/03/23 MARBELLA-7 AMB Questionnaire MARBELLA-7 Date MARBELLA - 7 assessed: 12/01/23 Feeling nervous, anxious, or on edge: 0 = Not at all Not being able to stop or control worryin = Not at all Worrying too much about different things: 0 = Not at all Trouble relaxin = Not at all Being so restless that it is hard to sit still: 0 = Not at all Becoming easily annoyed or irritable: 0 = Not at all Feeling afraid as if something awful might happen: 0 = Not at all Total MARBELLA-7 score (0-4 normal; 5-9 mild; 10-14 moderate; 15-21 severe): 0 Source: Developed by Drs. Oleg Stewart, Ana Garza, Eliu Anna and colleagues, with an educational faisal from [employer]. Physical exam (Primary Care) Vital Signs: Last Vital Signs Pulse 111 H 12/01/23 13:31 BP 100/66 12/01/23 13:31 Pulse Ox 96 12/01/23 13:31 Oxygen Delivery Method Room Air 12/01/23 13:31 Care Plan Goal for BP management: Blood pressure is stable. BMI result Body Mass Index 24.1 Tobacco/Smoking Status: Tobacco use Status Tobacco use date assessed 12/01/23 12/01/23 13:36 Patient Tobacco Use Status Former Tobacco user 12/01/23 13:44 e-Cigarette/Vaping Use Never Used 12/01/23 13:40 PHQ-9: PHQ-9 Score PHQ-9: Total score 7 12/01/23 13:44 Depression Screening Interpretation: Positive (On SSRI.) Depression Screening Follow-up: In treatment Thrive Assessment: Date of Thrive Assessment Date Thrive assessed 11/03/23 12/01/23 13:36 Const General: cooperative and healthy appearing Nutritional Appearance: well nourished Orientation/consciousness: patient oriented x3 Limitations: no limitations HENMT Head: Yes normal to inspection Eyes General: appearance normal, both eyes and all related structures Neck Neck: Yes normal visual inspection Chest Chest palpation & inspection: normal palpation of entire chest wall Resp Effort & Inspection: normal respiratory effort Neuro General: patient oriented x3 Assessment and Plan Assessment & Plan (1) Myocarditis: Code(s): I51.4 - Myocarditis, unspecified Plan: 20 minutes spent evaluating discharge summary from [facility]. On discharge patient had markedly elevated CRP, troponin I and liver function tests. Blood work has been ordered. Based on the results further treatment will be considered. Statins and SSRIs to be reordered. (2) Hyperlipidemia: Code(s): E78.5 - Hyperlipidemia, unspecified (3) Depression: Code(s): F32.A - Depression, unspecified Orders: Orders Troponin-I High Sensitivity Today Zeyad Sears MD I51.4 - Myocarditis, unspecified Liver Panel Today Zeyad Sears MD I51.4 - Myocarditis, unspecified Complete Blood Count no Diff Today Zeyad Sears MD I51.4 - Myocarditis, unspecified UA and rflx microscopic Today Zeyad Sears MD I51.4 - Myocarditis, unspecified C Reactive Protein Today Zeyad Sears MD I51.4 - Myocarditis, unspecified Lipid Panel Today Zeyad Sears MD I51.4 - Myocarditis, unspecified Basic Metabolic Panel Today Zeyad Sears MD I51.4 - Myocarditis, unspecified Thyroid Stimulating Hormone Today Zeyad Sears MD I51.4 - Myocarditis, unspecified Medications: Discontinued doxycycline hyclate can stop early if lyme screen is negative Discontinued Reason: Patient Completed Course 100 mg PO BID 20 caps 0RF LOURDES Rodriguez Coding Level of Care Code New Pt Level 4 (33283) Complex EM visit Add On G2211 Diagnoses Myocarditis I51.4 Hyperlipidemia E78.5 Depression F32.A
[2023-12-01 13:31] VITALS: BP 100/66; PULSE 111; O2SAT 96; BMI 24.1
== END 2023-12-01 14:12 | disposition home or self-care (01) ==
PROVIDERS: PCP Internal Medicine; Visit Provider Internal Medicine
DX: I51.4 Myocarditis, unspecified (principal); E78.5 Hyperlipidemia, unspecified; F32.A Depression, unspecified
CPT/HCPCS: 99204

== ENCOUNTER 2023-12-02 10:08 | Outpatient (REF) | payer OTHER, SELFPAY ==
[2023-12-02 13:04] LABS: Appearance Urine Clear; Color Urine Yellow; Glucose Urine UA Negative (Negative); Hematocrit 36.6 % (42.0-52.0); Hemoglobin 11.5 g/dl (14.0-18.0); Leukocyte Esterase Urine Negative (Negative); Mean Corpuscular HGB Conc 31.4 g/dl (31.0-36.0); Mean Corpuscular Hemoglobin 28.4 pg (27.0-33.0); Mean Corpuscular Volume 90.4 fL (80.0-98.0); Mean Platelet Volume 9.6 fL (9.4-12.4); Nitrite Urine Negative (Negative); PH 5.5 (5.0-9.0); Platelet Count 615 X10*3/uL (160-400); Red Blood Count 4.05 X10*6/uL (4.60-5.80); Red Cell Distribution Width 13.4 % (11.0-16.0); Specific Gravity - Urine 1.015 (1.005-1.025); Urine Blood Negative (Negative); Urine Ketones Negative (Negative); Urine Protein Negative (Neg-Trace); White Blood Count 10.5 X10*3/uL (4.8-10.8)
[2023-12-02 13:28] LABS: Troponin-I High Sensitivity 8.5 ng/L (<3.5-35.0)
[2023-12-02 13:32] LABS: Alanine Aminotransferase 99 U/L (0-40); Albumin Level 3.8 g/dL (3.5-5.0); Alkaline Phosphatase 188 U/L (39-117); Anion Gap 14 (12-20); Aspartate Amino Transferase 51 U/L (5-37); Bilirubin Direct 0.2 mg/dL (0.0-0.5); Bilirubin Total 0.5 mg/dL (0.0-1.0); Blood Urea Nitrogen 14 mg/dL (9-16); C Reactive Protein 4.01 mg/dL (< or = 0.50); Calcium 9.9 mg/dL (8.4-10.2); Carbon Dioxide 26 mmol/L (22-29); Chloride 106 mmol/L (96-108); Cholesterol 120 mg/dL (<200); Estimated Glomerular Filt Rate > 60; Glucose Random 109 mg/dL (60-115); HDL Cholesterol 40 mg/dL (>40); LDL Cholesterol Calculated 61 mg/dL (<100); Potassium 4.5 mmol/L (3.3-5.1); Sodium 141 mmol/L (135-145); Total Protein 7.7 g/dL (6.5-8.0); Triglycerides 95 mg/dL (<150)
[2023-12-02 13:50] LABS: Thyroid Stimulating Hormone 1.91 uIU/mL (0.32-4.0)
== END 2023-12-02 10:09 | disposition home or self-care (01) ==
LOC: HO.HMGCLDS 10:08
PROVIDERS: PCP Internal Medicine; Visit Provider Internal Medicine
DX: I51.4 Myocarditis, unspecified (principal)
CPT/HCPCS: 36415; 80048; 80061; 80076; 81003; 84443; 84484; 85027; 86140

== ENCOUNTER 2024-01-05 10:41 | Outpatient (AMB) | payer OTHER, SELFPAY ==
--- NOTE | 2024-01-05 10:47 | MHC.PC.OV ---
Vital Signs 01/05/24 10:48 Height 5 ft 11 in Weight 179 lb 2 oz BMI 25.0 BP 130/72 Blood Pressure Location Lt brachial Position Sitting Pulse 84 Pulse Source Pulse Oximeter Pulse Oximetry (%) 98 Oxygen Delivery Method Room Air Intake Visit Reasons: 4 week f/u Intake Note: Patient is here to follow up on Depression, HLD, Myocarditis. Retail Product Demo Specialist Required: No Optimization Analyst: Not Required per policy Accompanied by: Self / Same As Patient Allergies Penicillins [PCN] Allergy (Verified 01/05/24 10:48) Unknown Tobacco use date assessed: 01/05/24 Dental Screening Dental Screen Date: 12/01/23 HPI 4 week f/u HPI Details 63 yr old male presents to the office to discuss his chronic medical conditions. Patient reports he is at baseline state of health. His symptoms of pain, weakness has all resolved. Completed his antibiotic course. He reports he got a colonoscopy in 2017. Able to function and do all ADL's [facility] Medical History Myocarditis Hyperlipidemia Depression Surgical History (Updated 01/05/24 @ 12:41 by Zeyad Sears MD) History of colonoscopy (~05/04/16) History of tonsillectomy History of hand surgery History of mandibular surgery Family History Father History of open heart surgery Other Mental health disorder Social History Household Members: None Housing: House Do you presently have visiting nurse or other home services: No Alcohol intake: current Alcohol intake frequency: a few times a month Patient Tobacco Use Status: Former Tobacco user e-Cigarette/Vaping Use: Never Used Second Hand Smoke Exposure: No service: Yes Current occupational status: retired Cognitive needs: No Hearing needs: No Vision needs: Yes (Glasses) Questionnaire PHQ-9 Over the last 2 weeks, how often have you been bothered by any of the following problems? 1. Little interest or pleasure in doing things: not at all 2. Feeling down, depressed, or hopeless: not at all 3. Trouble falling or staying asleep, or sleeping too much: several days 4. Feeling tired or having little energy: not at all 5. Poor appetite or overeating: not at all 6. Feeling bad about yourself - or that you are a failure or have let yourself or your family down: not at all 7. Trouble concentrating on things, such as reading the newspaper or watching television: not at all 8. Moving or speaking so slowly that other people could have noticed. Or the opposite - being so fidgety or restless that you have been moving around a lot more than usual: not at all 9. Thoughts that you would be better off or of hurting yourself in some way: not at all Total score: 1 Depression Screening Interpretation: Positive Depression Screening Follow-up: Existing condition and In treatment Depression Screening Done: Yes Source: Developed by Drs. Oleg Stewart, Ana Garza, Eliu Anna and colleagues, with an educational faisal from [employer]. Thrive Questionnaire Date Thrive assessed: 11/03/23 MARBELLA-7 AMB Questionnaire MARBELLA-7 Date MARBELLA - 7 assessed: 01/05/24 Feeling nervous, anxious, or on edge: 0 = Not at all Not being able to stop or control worryin = Not at all Worrying too much about different things: 0 = Not at all Trouble relaxin = Not at all Being so restless that it is hard to sit still: 0 = Not at all Becoming easily annoyed or irritable: 0 = Not at all Feeling afraid as if something awful might happen: 0 = Not at all Total MARBELLA-7 score (0-4 normal; 5-9 mild; 10-14 moderate; 15-21 severe): 0 Source: Developed by Drs. Oleg Stewart, Ana Garza, Eliu Anna and colleagues, with an educational faisal from [employer]. Physical exam (Primary Care) Vital Signs: Last Vital Signs Pulse 84 01/05/24 10:48 BP 130/72 01/05/24 10:48 Pulse Ox 98 01/05/24 10:48 Oxygen Delivery Method Room Air 01/05/24 10:48 BMI result Body Mass Index 25.0 Tobacco/Smoking Status: Tobacco use Status Tobacco use date assessed 01/05/24 01/05/24 10:53 Patient Tobacco Use Status Former Tobacco user 01/05/24 10:53 e-Cigarette/Vaping Use Never Used 01/05/24 10:53 PHQ-9: PHQ-9 Score PHQ-9: Total score 1 01/05/24 12:56 Depression Screening Interpretation: Positive Depression Screening Follow-up: Existing condition and In treatment Thrive Assessment: Date of Thrive Assessment Date Thrive assessed 11/03/23 01/05/24 10:53 Const General: cooperative and healthy appearing Nutritional Appearance: well nourished Orientation/consciousness: patient oriented x3 Limitations: no limitations HENMT Head: Yes normal to inspection Eyes General: appearance normal, both eyes and all related structures Neck Neck: Yes normal visual inspection Chest Chest palpation & inspection: normal palpation of entire chest wall Resp Effort & Inspection: normal respiratory effort Neuro General: patient oriented x3 Assessment and Plan Assessment & Plan (1) Myalgia: Code(s): M79.10 - Myalgia, unspecified site Plan: Patient reports all symptoms have resolved. BW shows that the inflammatory markers (ESR, CRP, Liver enzymes) were decreasing but had not returned to normal range. BW needs to be repeated. No new medications added. Also, Informed patient that the Medical record recvd shows he had a colonoscopy in 2012 and would need a repeat one. Patient is adamant he recvd another colonoscopic procedure in 2017. Will contact [facility] Orders: Orders C Reactive Protein Today M79.10 - Myalgia, unspecified site Basic Metabolic Panel Today M79.10 - Myalgia, unspecified site Liver Panel Today M79.10 - Myalgia, unspecified site Erythrocyte Sedimentation Rate Today M79.10 - Myalgia, unspecified site Coding Level of Care Code Est Pt Level 4 (03390) Complex EM visit Add On G2211 Diagnoses Myalgia M79.10
[2024-01-05 10:48] VITALS: BP 130/72; PULSE 84; O2SAT 98; BMI 25.0
== END 2024-01-05 11:15 | disposition home or self-care (01) ==
PROVIDERS: PCP Internal Medicine; Visit Provider Internal Medicine
DX: M79.10 Myalgia, unspecified site (principal)
CPT/HCPCS: 99214

== ENCOUNTER 2024-01-07 11:04 | Outpatient (REF) | payer OTHER, SELFPAY ==
[2024-01-07 14:12] LABS: Erythrocyte Sedimentation Rate 34 MM/HR (0-15)
[2024-01-07 14:28] LABS: Alanine Aminotransferase 20 U/L (0-40); Albumin Level 4.3 g/dL (3.5-5.0); Alkaline Phosphatase 152 U/L (39-117); Anion Gap 12 (12-20); Aspartate Amino Transferase 19 U/L (5-37); Bilirubin Direct 0.2 mg/dL (0.0-0.5); Bilirubin Total 0.5 mg/dL (0.0-1.0); Blood Urea Nitrogen 14 mg/dL (9-16); C Reactive Protein 0.94 mg/dL (< or = 0.50); Calcium 9.8 mg/dL (8.4-10.2); Carbon Dioxide 24 mmol/L (22-29); Chloride 108 mmol/L (96-108); Estimated Glomerular Filt Rate > 60; Glucose Random 104 mg/dL (60-115); Potassium 4.4 mmol/L (3.3-5.1); Sodium 140 mmol/L (135-145); Total Protein 7.6 g/dL (6.5-8.0)
== END 2024-01-07 11:05 | disposition home or self-care (01) ==
LOC: HO.HMGCLDS 11:04
PROVIDERS: PCP Internal Medicine; Visit Provider Internal Medicine
DX: M79.10 Myalgia, unspecified site (principal)
CPT/HCPCS: 36415; 80048; 80076; 85652; 86140

== ENCOUNTER 2024-03-09 10:43 | Outpatient (REF) | payer OTHER, SELFPAY ==
[2024-03-09 13:20] LABS: Appearance Urine Clear; Color Urine Yellow; Glucose Urine UA Negative (Negative); Leukocyte Esterase Urine Negative (Negative); Nitrite Urine Negative (Negative); Urine Blood Negative (Negative); Urine Ketones Negative (Negative); Urine Protein Negative (Neg-Trace)
[2024-03-09 13:37] LABS: Hemoglobin 14.7 g/dl (14.0-18.0); Mean Corpuscular HGB Conc 32.7 g/dl (31.0-36.0); Mean Corpuscular Volume 85.7 fL (80.0-98.0); Mean Platelet Volume 10.1 fL (9.4-12.4); Platelet Count 291 X10*3/uL (160-400); Red Blood Count 5.25 X10*6/uL (4.60-5.80); Red Cell Distribution Width 15.1 % (11.0-16.0); White Blood Count 6.5 X10*3/uL (4.8-10.8)
[2024-03-09 14:15] LABS: Alanine Aminotransferase 24 U/L (0-40); Albumin Level 4.3 g/dL (3.5-5.0); Alkaline Phosphatase 149 U/L (39-117); Anion Gap 13 (12-20); Aspartate Amino Transferase 27 U/L (5-37); Bilirubin Direct 0.2 mg/dL (0.0-0.5); Bilirubin Total 0.5 mg/dL (0.0-1.0); Blood Urea Nitrogen 16 mg/dL (9-16); C Reactive Protein 0.64 mg/dL (< or = 0.50); Carbon Dioxide 25 mmol/L (22-29); Chloride 108 mmol/L (96-108); Cholesterol 141 mg/dL (<200); Estimated Glomerular Filt Rate > 60; Glucose Random 105 mg/dL (60-115); HDL Cholesterol 44 mg/dL (>40); LDL Cholesterol Calculated 75 mg/dL (<100); Potassium 4.7 mmol/L (3.3-5.1); Sodium 141 mmol/L (135-145); Total Protein 7.3 g/dL (6.5-8.0); Triglycerides 110 mg/dL (<150)
[2024-03-09 14:24] LABS: Thyroid Stimulating Hormone 1.96 uIU/mL (0.32-4.0)
== END 2024-03-09 10:44 | disposition home or self-care (01) ==
LOC: HO.HMGCLDS 10:43
PROVIDERS: PCP Internal Medicine; Visit Provider Internal Medicine
DX: M79.10 Myalgia, unspecified site (principal)
CPT/HCPCS: 36415; 80048; 80061; 80076; 81003; 84443; 85027; 86140

== ENCOUNTER 2024-03-22 13:29 | Outpatient (AMB) | payer OTHER, SELFPAY ==
--- NOTE | 2024-03-22 13:35 | MHC.PC.OV ---
Vital Signs 03/22/24 13:36 Height 5 ft 11 in Weight 185 lb 4 oz BMI 25.8 BP 120/66 Blood Pressure Location Lt brachial Position Sitting Pulse 97 Pulse Source Pulse Oximeter Pulse Oximetry (%) 96 Oxygen Delivery Method Room Air Intake Visit Reasons: F/U on labs results Intake Note: Patient is here to follow up on lab results. Pt decline flu shot today. Wool And Pelt Grader Required: No Data Processing Supervisor: Not Required per policy Accompanied by: Self / Same As Patient Allergies Penicillins [PCN] Allergy (Verified 03/22/24 14:13) Unknown Medication List - Last Reconciled 03/22/24 by Zeyad Sears MD ascorbic acid (vitamin C) 500 mg PO DAILY atorvastatin 20 mg PO BEDTIME multivitamin 1 tab PO DAILY omega [id number] oil 1,000 (120-180) mg (Fish Oil) 1 cap PO DAILY sertraline 100 mg PO DAILY vitamin B complex 1 cap PO DAILY Tobacco use date assessed: 03/22/24 Dental Screening Dental Screen Date: 12/01/23 HPI F/U on labs results HPI Details 63-year-old male presents to the office for a follow-up visit. Patient has elevated liver enzymes. He recalls many years ago he had a similar problem and was told he had fatty liver. He has not had any diagnostic ultrasounds since. Patient consumes 6 beers in a week. Patient reports no changes in his health. No weight loss. [facility] Medical History Myocarditis Hyperlipidemia Depression Surgical History History of colonoscopy (~09/16/17) History of tonsillectomy History of hand surgery History of mandibular surgery Family History Father History of open heart surgery Other Mental health disorder Social History Household Members: None Housing: House Do you presently have visiting nurse or other home services: No Alcohol intake: current Alcohol intake frequency: a few times a month Patient Tobacco Use Status: Former Tobacco user e-Cigarette/Vaping Use: Never Used Second Hand Smoke Exposure: No service: Yes Current occupational status: retired Cognitive needs: No Hearing needs: No Vision needs: Yes (Glasses) Questionnaire Thrive Questionnaire Date Thrive assessed: 11/03/23 MARBELLA-7 AMB Questionnaire MARBELLA-7 Date MARBELLA - 7 assessed: 01/05/24 Source: Developed by Drs. Oleg Stewart, Ana Garza, Eliu Anna and colleagues, with an educational faisal from [employer]. Physical exam (Primary Care) Vital Signs: Last Vital Signs Pulse 97 03/22/24 13:36 BP 120/66 03/22/24 13:36 Pulse Ox 96 03/22/24 13:36 Oxygen Delivery Method Room Air 03/22/24 13:36 BMI result Body Mass Index 25.8 Tobacco/Smoking Status: Tobacco use Status Tobacco use date assessed 03/22/24 03/22/24 13:38 Patient Tobacco Use Status Former Tobacco user 03/22/24 13:38 e-Cigarette/Vaping Use Never Used 03/22/24 13:38 Thrive Assessment: Date of Thrive Assessment Date Thrive assessed 11/03/23 03/22/24 13:38 Const General: cooperative and healthy appearing Nutritional Appearance: well nourished Orientation/consciousness: patient oriented x3 Limitations: no limitations HENMT Head: Yes normal to inspection Eyes General: appearance normal, both eyes and all related structures Neck Neck: Yes normal visual inspection Chest Chest palpation & inspection: normal palpation of entire chest wall Resp Effort & Inspection: normal respiratory effort Neuro General: patient oriented x3 Coding Level of Care Code Est Pt Level 4 (37503) Complex EM visit Add On G2211 Diagnoses Elevated liver enzymes R74.8 Assessment & Plan Assessment & Plan (1) Elevated liver enzymes: Code(s): R74.8 - Abnormal levels of other serum enzymes Plan: Compared to the previous blood test, alk-phos has declined but still elevated. His CRP is elevated. An ultrasound of the abdomen has been requested. Will call with the results. Orders: Orders US abdomen complete Today R74.8 - Abnormal levels of other serum enzymes
[2024-03-22 13:36] VITALS: BP 120/66; PULSE 97; O2SAT 96; BMI 25.8
== END 2024-03-22 14:40 | disposition home or self-care (01) ==
PROVIDERS: PCP Internal Medicine; Visit Provider Internal Medicine
DX: R74.8 Abnormal levels of other serum enzymes (principal)

== ENCOUNTER 2024-03-27 10:26 | Outpatient (REF) | payer OTHER, SELFPAY ==
--- NOTE | ~2024-03-27 | US_ITS ---
EXAMINATION: US ABDOMEN COMPLETE CLINICAL INFORMATION: Abnormal levels of other serum enzymes. COMPARISON: None available. TECHNIQUE: Real-time imaging of the abdominal viscera. FINDINGS: PANCREAS: Normal. ABDOMINAL AORTA: The proximal, mid, and distal segments are normal in caliber. INFERIOR VENA CAVA: Visualized portions are normal. LIVER: The liver is normal in size. The liver contour is normal. Increased echogenicity of the liver parenchyma, this can be seen in the setting of hepatic steatosis or liver parenchymal disease. No focal hepatic lesion. There is no intrahepatic biliary duct dilatation seen. GALLBLADDER: The gallbladder is physiologically distended. Multiple mobile gallstones are present. No evidence of gallbladder wall thickening or pericholecystic fluid. COMMON BILE DUCT: Normal in caliber measuring 0.6 cm in diameter. RIGHT KIDNEY: Normal. No hydronephrosis. No renal calculi or focal parenchymal lesions. The kidney measures 9.3 cm in maximum dimension. LEFT KIDNEY: Normal. No hydronephrosis. No renal calculi or focal parenchymal lesions. The kidney measures 10.2 cm in maximum dimension. SPLEEN: Normal. The spleen measures 9.3 cm in maximum dimension. FREE FLUID: None. US/US abdomen complete IMPRESSION: 1. Cholelithiasis without ultrasound evidence of acute cholecystitis. 2. Increased echogenicity of the liver parenchyma, this can be seen in the setting of hepatic steatosis or liver parenchymal disease. Electronically signed by: James Weinstein MD 04/23/2024 12:39 PM BOO
== END 2024-03-27 10:27 | disposition home or self-care (01) ==
LOC: HO.HMGCX 10:26
PROVIDERS: PCP Internal Medicine; Visit Provider Internal Medicine
DX: R74.8 Abnormal levels of other serum enzymes (principal)
CPT/HCPCS: 76700

== ENCOUNTER 2024-07-06 13:59 | Outpatient (AMB) | payer OTHER, SELFPAY ==
--- NOTE | 2024-07-06 14:22 | MHC.PC.OV ---
Vital Signs 07/06/24 14:24 Height 5 ft 11 in Weight 188 lb 6 oz BMI 26.3 BP 142/90 H Blood Pressure Location Lt brachial Position Sitting Pulse 89 Pulse Source Pulse Oximeter Temp 97.5 F Temp Source Temporal Artery Scan Pulse Oximetry (%) 97 Oxygen Delivery Method Room Air Intake Visit Reasons: 6 month follow up Tubular Riveter Required: No It Corporate Recruiter: Not Required per policy Accompanied by: Self / Same As Patient Allergies Penicillins [PCN] Allergy (Verified 07/06/24 14:48) Unknown Tobacco use date assessed: 07/06/24 Dental Screening Dental Screen Date: 07/06/24 Did you have a dental visit in the last 12 months?: Yes Did you have a dental problem in the last 6 months where you did not have access to dental care?: No Was dental information given to patient?: Patient has dentist [facility] Medical History Myocarditis Hyperlipidemia Depression Surgical History History of colonoscopy (~09/16/17) History of tonsillectomy History of hand surgery History of mandibular surgery Family History Father History of open heart surgery Other Mental health disorder Social History Household Members: None Housing: House Do you presently have visiting nurse or other home services: No Alcohol intake: current Alcohol intake frequency: a few times a month Patient Tobacco Use Status: Former Tobacco user e-Cigarette/Vaping Use: Never Used Second Hand Smoke Exposure: Yes service: Yes Current occupational status: retired Cognitive needs: No Hearing needs: No Vision needs: Yes (Glasses) Questionnaire PHQ-9 Over the last 2 weeks, how often have you been bothered by any of the following problems? 1. Little interest or pleasure in doing things: not at all 2. Feeling down, depressed, or hopeless: not at all 3. Trouble falling or staying asleep, or sleeping too much: not at all 4. Feeling tired or having little energy: not at all 5. Poor appetite or overeating: not at all 6. Feeling bad about yourself - or that you are a failure or have let yourself or your family down: not at all 7. Trouble concentrating on things, such as reading the newspaper or watching television: not at all 8. Moving or speaking so slowly that other people could have noticed. Or the opposite - being so fidgety or restless that you have been moving around a lot more than usual: not at all 9. Thoughts that you would be better off or of hurting yourself in some way: not at all Total score: 0 Depression Screening Interpretation: Negative Depression Screening Done: Yes Source: Developed by Drs. Oleg Stewart, Ana Garza, Eliu Anna and colleagues, with an educational faisal from [employer]. Thrive Questionnaire Date Thrive assessed: 07/06/24 I am a: Patient What is your living situation today?: I have a steady place to live Within the past 12 months, did the food you bought not last and you didn't have the money to get more?: Never true Within the past 12 months, did you worry whether your food would run out before you got money to buy more?: Never true Do you have trouble paying for medicines?: No Do you have trouble getting transportation to medical appointments?: No Do you have trouble paying your heating and electricity bill?: No Do you have trouble taking care of your child, family member or friend?: No Do you have trouble with day-to-day activities such as bathing, preparing meals, shopping, managing finances, etc.?: No Are you currently unemployed and looking for a job?: No Are you interested in more education?: No Please select the resources that you would like help with: None Currently or been in a relationship where the following occur: No concerns reported THRIVE Score: 0 AUDIT C Alcohol Use Questionnaire (AUDIT-C) 1. How often do you have a drink containing alcohol?: Never Total Score: 0 MARBELLA-7 AMB Questionnaire MARBELLA-7 Date MARBELLA - 7 assessed: 07/06/24 Feeling nervous, anxious, or on edge: 0 = Not at all Not being able to stop or control worryin = Not at all Worrying too much about different things: 0 = Not at all Trouble relaxin = Not at all Being so restless that it is hard to sit still: 0 = Not at all Becoming easily annoyed or irritable: 0 = Not at all Feeling afraid as if something awful might happen: 0 = Not at all Total MARBELLA-7 score (0-4 normal; 5-9 mild; 10-14 moderate; 15-21 severe): 0 Source: Developed by Drs. Oleg Stewart, Ana Garza, Eliu Anna and colleagues, with an educational faisal from [employer]. Physical exam (Primary Care) Vital Signs: Last Vital Signs Temp 97.5 F 07/06/24 14:24 Pulse 89 07/06/24 14:24 BP 142/90 H 07/06/24 14:24 Pulse Ox 97 07/06/24 14:24 Oxygen Delivery Method Room Air 07/06/24 14:24 Care Plan Goal for BP management: Elevation and diastolic blood pressure noted. We will continue to monitor. BMI result Body Mass Index 26.3 Tobacco/Smoking Status: Tobacco use Status Tobacco use date assessed 07/06/24 07/06/24 14:27 Patient Tobacco Use Status Former Tobacco user 07/06/24 14:27 e-Cigarette/Vaping Use Never Used 07/06/24 14:27 PHQ-9: PHQ-9 Score PHQ-9: Total score 0 07/06/24 14:27 Depression Screening Interpretation: Negative Thrive Assessment: Date of Thrive Assessment Date Thrive assessed 07/06/24 07/06/24 14:27 Currently or been in a relationship where the following occur: No concerns reported Advance Care Planning discussion: Exists, not on file Date of discussion: 07/06/24 Who was present: Patient Forms completed: Health Care Proxy and MOLST Actual minutes spent: 5 Coding Level of Care Code Est Pt Level 4 (36710) Complex EM visit Add On G2211 Diagnoses Hyperlipidemia E78.5 Myocarditis I51.4 Depression F32.A Additional Codes Vital Signs *Quality* - Advance Care Planning discussion: Exists, not on file ([id number]) Assessment & Plan Assessment & Plan (1) Hyperlipidemia: Code(s): E78.5 - Hyperlipidemia, unspecified Category: Medical Plan: Blood work has been ordered. Will call with the results. (2) Myocarditis: Code(s): I51.4 - Myocarditis, unspecified Category: Medical Plan: This condition has resolved. (3) Depression: Code(s): F32.A - Depression, unspecified Category: Medical Plan: Patient is on 100 mg a day sertraline. Plan History of Present Illness The patient is a 63-year-old male presenting with major depressive disorder and associated challenges. The depressive symptoms have become more pronounced, possibly due to psychosocial stressors related to his father's long-term care. He is on Sertraline 100 mg, with social support providing some additional relief, though he does not engage with professional counseling services. Furthermore, the patient experiences visual disturbances, specifically halos around lights at night, although cataracts have been ruled out as the cause. He consumes a moderate amount of alcohol weekly and acknowledges gallstones without recent complications. Health Maintenance - Monitoring of liver function due to alcohol use. - Routine eye examinations continue to rule out progressive conditions like cataracts. Social History - Consumes four to five alcoholic drinks weekly. - Has social support from friends and family, which helps manage his depressive symptoms. - Reports no therapeutic visits with a counselor but uses personal relationships for mental health support. Review of Systems - Psychological: Reports increased depressive symptoms. - Vision: Reports halos around lights during night driving; denies cataracts. - Gastrointestinal: Denies pain; aware of gallstones. - Sleep: Reports sleeping well with supplements. Physical Exam Results Plan The management of the patient's major depressive disorder will continue with Sertraline 100 mg daily, while simultaneously monitoring liver function due to alcohol intake. Despite no interest in therapy, the patient maintains social contacts for emotional support. Visual disturbances have been assessed, with cataracts ruled out, necessitating no further intervention at this time. Routine follow-up and lab assessments will continue for comprehensive care. Patient was informed and verbally consented to the use of an ambient scribe for clinic note documentation during this visit. Discussion Notes I discussed the patient's current treatment regimen with Sertraline for depression, emphasizing the importance of consistency. We reviewed ongoing monitoring protocols for his liver function due to his alcohol use. We also considered the potential value of therapy but acknowledged the patient's reliance on social support networks. I advised against the need for liver supplements advertised on television due to lack of efficacy and highlighted the importance of future follow-ups and routine bloodwork assessments. The patient was informed that no further action is necessary for his visual symptoms, given the recent evaluation that ruled out cataracts. Patient Instructions - Continue taking Sertraline 100 mg as prescribed. - Attend scheduled blood work to monitor liver function. - Maintain social interaction for emotional support. - Avoid advertised liver supplements without proven benefits. - Follow-up for regular assessments. - Reduce alcohol consumption to minimize potential health risks. - Report any changes in visual symptoms or increased depression to me. Orders: Orders Liver Panel Today E78.5 - Hyperlipidemia, unspecified, F32.A - Depression, unspecified Prostate Specific Antigen Scr Today E78.5 - Hyperlipidemia, unspecified, F32.A - Depression, unspecified Complete Blood Count no Diff Today E78.5 - Hyperlipidemia, unspecified, F32.A - Depression, unspecified Basic Metabolic Panel Today E78.5 - Hyperlipidemia, unspecified, F32.A - Depression, unspecified Lipid Panel Today E78.5 - Hyperlipidemia, unspecified, F32.A - Depression, unspecified Thyroid Stimulating Hormone Today E78.5 - Hyperlipidemia, unspecified, F32.A - Depression, unspecified UA and rflx microscopic Today E78.5 - Hyperlipidemia, unspecified, F32.A - Depression, unspecified
[2024-07-06 14:24] VITALS: BP 142/90; PULSE 89; TEMP 36.4; O2SAT 97; BMI 26.3
== END 2024-07-06 14:48 | disposition home or self-care (01) ==
PROVIDERS: PCP Internal Medicine; Visit Provider Internal Medicine
DX: E78.5 Hyperlipidemia, unspecified (principal); I51.4 Myocarditis, unspecified; F32.A Depression, unspecified; Z00.00 Encounter for general adult medical examination without abnormal findings

== ENCOUNTER → 2024-07-06 13:59 | Outpatient (BNVA) | payer OTHER, SELFPAY | PROVIDERS: PCP Internal Medicine; Visit Provider Internal Medicine ==

== ENCOUNTER 2024-07-13 10:51 | Outpatient (REF) | payer OTHER, SELFPAY ==
[2024-07-13 13:16] LABS: Appearance Urine Clear; Color Urine Yellow; Glucose Urine UA Negative (Negative); Leukocyte Esterase Urine Negative (Negative); Nitrite Urine Negative (Negative); PH 5.5 (5.0-9.0); Urine Blood Negative (Negative); Urine Ketones Negative (Negative); Urine Protein Negative (Neg-Trace)
[2024-07-13 13:49] LABS: Hematocrit 44.8 % (42.0-52.0); Hemoglobin 15.3 g/dl (14.0-18.0); Mean Corpuscular HGB Conc 34.2 g/dl (31.0-36.0); Mean Corpuscular Hemoglobin 30.4 pg (27.0-33.0); Mean Corpuscular Volume 88.9 fL (80.0-98.0); Mean Platelet Volume 10.6 fL (9.4-12.4); Platelet Count 258 X10*3/uL (160-400); Red Blood Count 5.04 X10*6/uL (4.60-5.80); Red Cell Distribution Width 13.1 % (11.0-16.0); White Blood Count 7.5 X10*3/uL (4.8-10.8)
[2024-07-13 14:15] LABS: Alanine Aminotransferase 31 U/L (0-40); Albumin Level 4.5 g/dL (3.5-5.0); Alkaline Phosphatase 141 U/L (39-117); Anion Gap 13 (12-20); Aspartate Amino Transferase 25 U/L (5-37); Bilirubin Direct 0.3 mg/dL (0.0-0.5); Blood Urea Nitrogen 14 mg/dL (9-16); Calcium 9.6 mg/dL (8.4-10.2); Carbon Dioxide 28 mmol/L (22-29); Chloride 106 mmol/L (96-108); Cholesterol 162 mg/dL (<200); Estimated Glomerular Filt Rate > 60; Glucose Random 93 mg/dL (60-115); HDL Cholesterol 47 mg/dL (>40); LDL Cholesterol Calculated 79 mg/dL (<100); Potassium 4.4 mmol/L (3.3-5.1); Sodium 143 mmol/L (135-145); Total Protein 7.7 g/dL (6.5-8.0); Triglycerides 182 mg/dL (<150)
[2024-07-13 14:24] LABS: Prostate Specific Antigen Scr 1.34 ng/mL (<0.05-4.0)
[2024-07-13 14:34] LABS: Thyroid Stimulating Hormone 2.16 uIU/mL (0.32-4.0)
== END 2024-07-13 10:52 | disposition home or self-care (01) ==
LOC: HO.HMGCLDS 10:51
PROVIDERS: PCP Internal Medicine; Visit Provider Internal Medicine
DX: E78.5 Hyperlipidemia, unspecified (principal); F32.A Depression, unspecified; Z12.5 Encounter for screening for malignant neoplasm of prostate
CPT/HCPCS: 36415; 80048; 80061; 80076; 81003; 84153; 84443; 85027

== ENCOUNTER 2025-01-04 10:43 | Outpatient (AMB) | payer OTHER, SELFPAY ==
--- NOTE | 2025-01-04 11:02 | A.OFFPC_ITS ---
Vital Signs 01/04/25 11:03 Height 5 ft 11 in Weight 194 lb 6 oz BMI 27.1 BP 140/90 H Blood Pressure Location Lt brachial Position Sitting Pulse 102 H Pulse Source Pulse Oximeter Temp 97.1 F Temp Source Temporal Artery Scan Pulse Oximetry (%) 96 Oxygen Delivery Method Room Air Intake Visit Reasons: 6 month f/u Intake Note: Patient is here to follow up on HLD, Myalgia. Newspaper Inserter Required: No Portable Irrigation Operator: Not Required per policy Accompanied by: Self / Same As Patient Allergies Penicillins (PCN) Allergy (Verified 01/04/25 11:03) Unknown Tobacco use date assessed: 01/04/25 Dental Screening Dental Screen Date: 07/06/24 [facility] Medical History (Updated 01/04/25 @ 19:04 by Zeyad Sears MD) Alcohol use disorder Myocarditis Hyperlipidemia Depression Surgical History History of colonoscopy (~09/16/17) History of tonsillectomy History of hand surgery History of mandibular surgery Family History Father History of open heart surgery Other Mental health disorder Social History Household Members: None Housing: House Do you presently have visiting nurse or other home services: No Alcohol intake: current Alcohol intake frequency: a few times a month Patient Tobacco Use Status: Former Tobacco user e-Cigarette/Vaping Use: Never Used Second Hand Smoke Exposure: Yes service: Yes Current occupational status: retired Cognitive needs: No Hearing needs: No Vision needs: Yes (Glasses) Questionnaire Thrive Questionnaire Date Thrive assessed: 07/06/24 MARBELLA-7 AMB Questionnaire MARBELLA-7 Date MARBELLA - 7 assessed: 07/06/24 Source: Developed by Drs. Oleg Stewart, Ana Garza, Eliu Anna and colleagues, with an educational faisal from [employer]. Physical exam (Primary Care) Vital Signs: Last Vital Signs Temp 97.1 F 01/04/25 11:03 Pulse 102 H 01/04/25 11:03 BP 140/90 H 01/04/25 11:03 Pulse Ox 96 01/04/25 11:03 Oxygen Delivery Method Room Air 01/04/25 11:03 BMI result Body Mass Index 27.1 Tobacco/Smoking Status: Tobacco use Status Tobacco use date assessed 01/04/25 01/04/25 11:08 Patient Tobacco Use Status Former Tobacco user 01/04/25 11:08 e-Cigarette/Vaping Use Never Used 01/04/25 11:08 Thrive Assessment: Date of Thrive Assessment Date Thrive assessed 07/06/24 01/04/25 11:08 Coding Level of Care Code Est Pt Level 4 (50939) Complex EM visit Add On G2211 Diagnoses Alcohol use disorder F10.90 Assessment & Plan Assessment & Plan (1) Alcohol use disorder: Code(s): F10.90 - Alcohol use, unspecified, uncomplicated Category: Medical Plan: BP is markedly elevated. He would like to return for a nursing visit before he starts medications. Abstinence advised. Plan History of Present Illness - The patient is a 64-year-old male presenting with concerns about alcohol use and elevated blood pressure. - Alcohol use: The patient consumes up to six beers weekly, primarily during social gatherings and at home. - He is concerned about the potential long-term effects of alcohol consumption, particularly in relation to his medications. - Elevated blood pressure: The patient reports a recent increase in blood pressure, which he believes may be related to stress from recent personal losses. Social History - Alcohol consumption: The patient drinks beer socially, consuming up to six beers per week. Review of Systems - Cardiovascular: Reports elevated blood pressure, possibly related to stress. Physical Exam General: Cooperative and healthy appearing Nutritional Appearance: Well nourished Orientation/consciousness: Patient oriented x3 Limitations: No limitations Head: Normal to inspection General: Appearance normal, both eyes and all related structures Neck: Normal visual inspection Chest: Normal palpation of entire chest wall Respiratory: N ormal respiratory effort Neurology: Patient oriented x3, reports high blood pressure, possibly anxiety- related due to stress. Results Plan 1. Alcohol Use - Advised to reduce alcohol consumption and perform blood work to assess liver function. 2. Elevated Blood Pressure - Advised that stress may be contributing to elevated blood pressure and suggested follow-up monitoring. Discussion Notes I discussed with the patient the importance of reducing alcohol intake to mitigate potential health risks, especially concerning liver health. We also talked about the impact of stress on blood pressure and the need for follow-up monitoring. Blood work was recommended to evaluate liver function. Patient Instructions - Reduce alcohol consumption to lower health risks. - Undergo blood work to check liver function. - Monitor blood pressure regularly and manage stress.
[2025-01-04 11:03] VITALS: BP 140/90; PULSE 102; TEMP 36.2; O2SAT 96; BMI 27.1
== END 2025-01-04 11:36 | disposition home or self-care (01) ==
LOC: HO.HMCH 10:43
PROVIDERS: PCP Internal Medicine; Visit Provider Internal Medicine
DX: F10.90 Alcohol use, unspecified, uncomplicated (principal)

== ENCOUNTER 2025-01-08 10:43 | Outpatient (REF) | payer OTHER, SELFPAY ==
[2025-01-08 14:01] LABS: Appearance Urine Cloudy; Glucose Urine UA Negative (Negative); PH 5.0 (5.0-9.0); Specific Gravity - Urine 1.015 (1.005-1.025)
[2025-01-08 14:16] LABS: Hematocrit 46.2 % (42.0-52.0); Hemoglobin 15.5 g/dl (14.0-18.0); Mean Corpuscular HGB Conc 33.5 g/dl (31.0-36.0); Mean Corpuscular Hemoglobin 30.3 pg (27.0-33.0); Mean Corpuscular Volume 90.2 fL (80.0-98.0); NRBC Abs Auto 0.000 X10*3/uL (0.0-0.012); NRBC Pct Auto 0.0 /100WBC (0.0-0.2); Platelet Count 285 X10*3/uL (160-400); Red Blood Count 5.12 X10*6/uL (4.60-5.80); White Blood Count 8.2 X10*3/uL (4.8-10.8)
[2025-01-08 15:11] LABS: Alanine Aminotransferase 36 U/L (0-40); Albumin Level 4.7 g/dL (3.5-5.0); Alkaline Phosphatase 147 U/L (39-117); Anion Gap 13 (12-20); Aspartate Amino Transferase 29 U/L (5-37); Blood Urea Nitrogen 15 mg/dL (9-16); Calcium 9.3 mg/dL (8.4-10.2); Carbon Dioxide 27 mmol/L (22-29); Chloride 108 mmol/L (96-108); Cholesterol 158 mg/dL (<200); Estimated Glomerular Filt Rate > 60; HDL Cholesterol 45 mg/dL (>40); Potassium 4.5 mmol/L (3.3-5.1); Sodium 143 mmol/L (135-145); Thyroid Stimulating Hormone 1.98 uIU/mL (0.32-4.0); Total Protein 7.3 g/dL (6.5-8.0); Triglycerides 188 mg/dL (<150)
== END 2025-01-08 10:44 | disposition home or self-care (01) ==
LOC: HO.HMGCLDS 10:43
PROVIDERS: PCP Internal Medicine; Visit Provider Internal Medicine
DX: F10.90 Alcohol use, unspecified, uncomplicated (principal)
CPT/HCPCS: 36415; 80048; 80061; 80076; 81003; 84443; 85027